=== PATIENT | female | born 1995 | race Caucasian/White ===

== ENCOUNTER 2021-01-08 19:08 | Emergency (ER) | payer BC, SELFPAY ==
[2021-01-08 19:09] VITALS: BP 127/111; PULSE 130; RESP 22; TEMP 36.2; O2SAT 100
--- NOTE | 2021-01-08 19:21 | PC.NURSE ---
Dr. Petty gave patient soda.
--- NOTE | 2021-01-08 19:31 | ED.GENADULT ---
HPI - General Adult General Chief complaint: Unspecified Stated complaint: feels like something stuck in throat Time Seen by Provider: 01/08/21 19:15 Source: RN notes reviewed History of Present Illness HPI narrative: Patient presents emergency department from home for esophageal foreign body patient states she was eating steak approximately 4:30 PM she had a piece of steak stuck. She states that this is happened proximally 10 other times states she is been unable to tolerate any liquids including her own secretions she denies any fevers or chills chest pain shortness of breath or any other symptoms Related Data Allergies Allergy/AdvReac Type Severity Reaction Status Date / Time No Known Allergies Allergy Unknown Verified 01/08/21 19:12 Review of Systems Review of Systems: Narrative: Gen.: Denies fevers or chills ENT: Denies congestion Respiratory: Denies shortness of breath or cough CV: Denies chest pain or palpitations GI: See HPI denies chance of Musculoskeletal: Denies back pain or muscle pain Neuro: Denies numbness, tingling, weakness or focal weakness Skin: Denies rash Except as documented, all other systems reviewed and negative [facility] Past Medical History Medical History (Updated 01/08/21 @ 19:49 by Adams Petty DO) Patient denies significant medical history Social History Social History (Updated 01/08/21 @ 19:32 by Adams Petty DO) Smoking status: Never smoker Exam Narrative: Exam Narrative: APPEARANCE: No acute distress, nontoxic, resting in bed EYES: EOMI HEENT: Normocephalic, atraumatic, OMM airway patent, unable to tolerate own secretions RESPIRATORY: No respiratory distress Clear to auscultation bilaterally with no rhonchi wheezing or rales. CARDIOVASCULAR: Regular rate and rhythm without murmurs rubs or gallops. ABDOMINAL: Soft, nontender, nondistended, no rebound or guarding MUSCULOSKELETAl: Moves all extremities. NEURO: Awake and alert. Following commands, speech normal, no focal deficits SKIN:: Warm, dry. No rashes lesions or abrasions PSYCHIATRIC: Normal affect/mood, Course Course Emergency Course: Patient given strain asked to jump up and down with passage of foreign body now able to drink and tolerating own secretions Discussed with patient results of workup and diagnosis. Discussed need for follow-up with primary care, proper use of medication, and reasons to return to the emergency department. Patient understands and agrees to current treatment plan Vital Signs Vital signs: Vital Signs Temperature 97.2 F L 01/08/21 19:09 Pulse Rate 130 H 01/08/21 19:09 Respiratory Rate 22 H 01/08/21 19:09 Blood Pressure 127/111 H 01/08/21 19:09 Pulse Oximetry 100 01/08/21 19:09 Temperature 97.2 F L 01/08/21 19:09 Pulse Rate 130 H 01/08/21 19:09 Respiratory Rate 22 H 01/08/21 19:09 Blood Pressure 127/111 H 01/08/21 19:09 Pulse Oximetry 100 01/08/21 19:09 Medical Decision Making Vital Signs Vital Signs: Vital Signs Temperature 97.2 F L 01/08/21 19:09 Pulse Rate 130 H 01/08/21 19:09 Respiratory Rate 22 H 01/08/21 19:09 Blood Pressure 127/111 H 01/08/21 19:09 Pulse Oximetry 100 01/08/21 19:09 Temperature 97.2 F L 01/08/21 19:09 Pulse Rate 130 H 01/08/21 19:09 Respiratory Rate 22 H 01/08/21 19:09 Blood Pressure 127/111 H 01/08/21 19:09 Pulse Oximetry 100 01/08/21 19:09 Discharge Plan Discharge Clinical Impression: Esophageal foreign body Patient Disposition: Home, Self-Care Condition: Stable Instructions: Antibiotic Form, Esophageal Foreign Body (ED) Additional Instructions: Return for any inability to swallow or any other symptoms of concern Prescriptions: New pantoprazole [Protonix] 40 mg tablet,delayed release (DR/EC) 40 mg PO HS Qty: 14 RF: 0 Follow-up/Referrals: PHYSICIAN NOT ON STAFF,NONSTAFF [Primary Care Provider] - Jarad Baig MD [Physician] - (Follow-up
--- NOTE | 2021-01-08 19:42 | PC.NURSE ---
Patient states that the food in her throat is gone, and she feels much better after 's intervention. ERP notified of patient's results.
== END 2021-01-08 20:22 | disposition home or self-care (01) ==
LOC: ANHED 20:16
PROVIDERS: Emergency Provider Emergency Medicine; PCP Internal Medicine
DX: T18.128A Food in esophagus causing other injury, initial encounter (principal)
CPT/HCPCS: 99283

== ENCOUNTER → 2021-03-19 01:42 | Outpatient (CLI) | payer BC, SELFPAY ==
[2021-03-20 14:53] LABS: SARS-CoV-2 RNA PCR Negative
== END ==
PROVIDERS: PCP Internal Medicine; Visit Provider Internal Medicine Gastroenterology
DX: Z01.812 Encounter for preprocedural laboratory examination (principal); Z20.822 Contact with and (suspected) exposure to COVID-19
CPT/HCPCS: C9803; U0003; U0005

== ENCOUNTER → 2022-03-13 09:16 | Outpatient (CLI) | payer BC, SELFPAY ==
--- NOTE | ~2022-03-13 | US_ITS ---
EXAMINATION: US transvaginal DATE: 03/13/2022 09:36 INDICATION: Assess IUD position TECHNIQUE: Multiple endovaginal sonographic images of the pelvis were obtained. COMPARISON: 04/01/2019 FINDINGS: The uterus measures 7.9 x 3.0 x 5.0 cm. The IUD is in expected position. The endometrial co mplex measures 3 mm. The right ovary measures 4.1 x 2.6 x 3.2 cm. The left ovary measures 3.4 x 2.6 x 2.7 cm. There is normal vascular flow in the ovaries. There is no free fluid in the pelvis. IMPRESSION: 1. IUD in expected position. Reviewed, dictated and finalized at location A.
== END ==
PROVIDERS: PCP Family Medicine; Visit Provider Nurse Practitioner
DX: T83.32XA Displacement of intrauterine contraceptive device, initial encounter (principal)
CPT/HCPCS: 76830

== ENCOUNTER 2022-07-13 17:24 | Emergency (ER) | payer BC, SELFPAY ==
[2022-07-13 17:30] VITALS: BP 125/70; PULSE 84; RESP 18; TEMP 36.9; O2SAT 100
--- NOTE | 2022-07-13 17:37 | ED.WOUNDLAC ---
HPI - Wound/Laceration General Chief Complaint: Wound/Laceration Stated Complaint: Cut Index Finger Rt Hand Time Seen by Provider: 07/13/22 17:30 Source: patient, family, RN notes reviewed and old records reviewed Mode of arrival: ambulatory Limitations: no limitations History of Present Illness HPI narrative: 27-year-old female presents to the [facility] with a laceration to the radial aspect of the right index finger. Bleeding is controlled. States she cut it on a knife while washing dishes. Has full range of motion. Last Tdap yesterday. Patient tetanus UTD: Yes (July 11, 2022) Related Data Home Medications Medication Instructions Recorded Confirmed levonorgestrel 20 mcg/24 hours (7 See Rx Instructions .Route .COMPLEX 07/13/22 07/13/22 yrs) 52 mg intrauterine device (Mirena) Allergies Allergy/AdvReac Type Severity Reaction Status Date / Time No Known Allergies Allergy Unknown Verified 07/13/22 17:28 Review of Systems Review of Systems: All systems reviewed & are unremarkable except as noted in HPI and below Constitutional: Constitutional: Reports no additional constitutional complaints, Denies chills and Denies fever(s) Eyes: Eyes: Reports no additional eye complaints ENT: Reports system reviewed and no additional complaints, except as documented Cardiovascular: Cardiovascular: Reports no additional cardiovascular complaints, Denies chest pain and Denies dyspnea Respiratory: Respiratory: Reports no additional respiratory complaints, Denies cough and Denies dyspnea Gastrointestinal: Gastrointestinal: Reports no additional gastrointestinal complaints, Denies abdominal pain, Denies nausea and Denies vomiting Musculoskeletal: Musculoskeletal: Reports no additional musculoskeletal complaints Integumentary/Breasts: Skin/Breast: Reports as per HPI Comments: 2 cm laceration right index finger Neurologic: Reports system reviewed and no additional complaints, except as documented Psychiatric: Psychiatric: Reports no additional psychiatric complaints Allergic/Immunologic: Allergic/Immunologic: Reports no additional allergic/immunologic complaints [facility] Past Medical History Medical History (Updated 07/13/22 @ 17:55 by Hannah Sterling APRN) Dysphagia Food impaction of esophagus GERD (gastroesophageal reflux disease) Patient denies significant medical history Surgical History Surgical History History of tonsillectomy Family History Family History Other Hypertension Social History Social History Smoking status: Never smoker Alcohol intake: current Drinks per week: 4 Substance use type: does not use, former substance user, marijuana, crack/cocaine, heroin, amphetamines, hallucinogens, tranquilizers, sedatives, opiates, painkillers, club/senior interior designer drugs, inhalants, IV drugs, methamphetamine, prescription drug, unknown and other Spiritual care concerns: No Comments At the time of my signature, I reviewed and agree with the nursing past medical, surgical, social, and family history. There is no relevant family history pertinent to the patient complaint. Exam Const: General: cooperative, healthy appearing, no acute distress, well developed, alert and awake Nutritional Appearance: well nourished Orientation/consciousness: patient oriented x3 Limitations: no limitations HENMT: Head: normal to inspection and No palpable skull fracture present Ears: hearing grossly normal bilaterally, external ears normal, TM's normal bilaterally and EAC's normal Eyes: Pupils: Equal, round and reactive pupils present Neck: Neck: normal visual inspection, no lymphadenopathy and no meningeal signs Chest: Chest palpation & inspection: normal inspection of the chest Resp: Effort & Inspection: normal respiratory effort and no use of accessor
== END 2022-07-13 18:00 | disposition home or self-care (01) ==
PROVIDERS: Emergency Provider Nurse Practitioner; PCP Family Medicine
DX: S61.210A Laceration without foreign body of right index finger without damage to nail, initial encounter (principal); W26.0XXA Contact with knife, initial encounter; Y93.G1 Activity, food preparation and clean up; K21.9 Gastro-esophageal reflux disease without esophagitis
CPT/HCPCS: 12001; 99212; G0463

== ENCOUNTER 2024-08-22 14:41 | Outpatient (CLI) | payer BC, SELFPAY ==
--- NOTE | ~2024-08-22 | US_ITS ---
EXAMINATION: US OB transvaginal DATE: 08/22/2024 14:59 INDICATION: Early . TECHNIQUE: Real-time transvaginal pelvic ultrasound was performed. COMPARISON: None. FINDINGS: The uterus measures 10.9 x 5.8 x 6.8 cm. There is an intrauterine gestational sac. A yolk sac is iden tified. The crown rump length measures 1.6 cm, which correlates with an estimated gestational age of 8 weeks and 0 day(s) (+/-) 5 day(s). heart motion is identified measuring 176 beats per minute (bpm) by M-mode Doppler. The ovaries are not visualized. There is no free fluid in the pelvis. IMPRESSION: 1. Single living intrauterine gestation with estimated date of delivery of 04/03/2025. Reviewed, dictated and finalized at location A. IMPRESSION: 1. Single living intrauterine gestation with estimated date of delivery of 03/13.
== END 2024-08-22 14:42 | disposition home or self-care (01) ==
LOC: MICIMG 14:41
PROVIDERS: PCP Family Medicine; Visit Provider Advanced Practice Midwife
DX: N92.6 Irregular menstruation, unspecified (principal)
CPT/HCPCS: 76817

== ENCOUNTER 2025-01-08 08:28 | Outpatient (CLI) | payer BC, SELFPAY ==
[2025-01-08] VITALS (7 sets, daily range): BP systolic 117–148; BP diastolic 66–97; PULSE 85–108; BMI 29.2
[2025-01-08 09:15] LABS: Add Urine Microscopic? YES; Appearance Urine Clear (Clear); Bacteria Urine 2+ /hpf; Bilirubin Urine Negative (Negative); Blood Urine Negative (Negative); Color Urine Yellow (Yellow); Glucose Urine UA Negative (Negative); Ketones Urine Negative (Negative); Leukocyte Esterase Ur Trace LEU/UL (Negative); Need Manual Microscopic Reviewed; Nitrate Urine Negative (Negative); Non Pathogenic Casts 0-2; Protein Urine Trace mg/dL (Negative); RBC Urine 0-2 /hpf (0-2); Specific Grav Ur 1.012 (1.001-1.035); Squamous Epithelial Cell Urine Occasional /hpf (Few); Urobilinogen Urine 0.2 mg/dL (<2.0)
[2025-01-08 09:19] LABS: Alanine Aminotransferase 29 U/L (6-35); Albumin Level 3.4 g/dL (3.5-5.1); Alkaline Phosphatase 115 U/L (38-126); Anion Gap 11 mmol/L (4-12); Aspartate Amino Transferase 30 U/L (14-36); Bilirubin,Total 0.8 mg/dL (0.2-1.3); Blood Urea Nitrogen 11 mg/dL (7-17); Calcium 9.6 mg/dL (8.4-10.2); Carbon Dioxide 21 mmol/L (22-30); Chloride 104 mmol/L (98-107); Estimated CRCL calculation 98 ml/min; Estimated Glomerular Filt Rate > 60; Glucose 124 mg/dL (65-110); Potassium 3.7 mmol/L (3.4-5.0); Sodium 136 mmol/L (137-145); Uric Acid 5.4 mg/dL (2.5-7.5)
[2025-01-08 09:28] LABS: Total Protein Urine Random 18 mg/dL
[2025-01-08 09:43] LABS: Basophils Percent Auto 0.4 % (0.2-1.2); Eosinophils Absolute Auto 0.3 K/mm3 (0-0.3); Eosinophils Percent Auto 4.2 % (0-4.4); Hematocrit 39.3 % (37.0-47.0); Hemoglobin 13.3 g/dL (12.0-15.0); Immature Granulocyte Absolute 0.03 K/mm3 (0.00-0.031); Immature Granulocyte Percent A 0.4 % (0-0.5); Lymphocytes Absolute Auto 2.83 K/mm3 (0.9-3.2); Lymphocytes Percent Auto 36.3 % (18.3-44.2); Mean Corpuscular HGB Conc 33.8 g/dl (32-36); Mean Corpuscular Hemoglobin 30.5 pg (26-34); Mean Corpuscular Volume 90.1 fl (80-100); Mean Platelet Volume 11.2 fl (7.4-10.4); Monocytes Absolute Auto 0.5 K/mm3 (0.1-0.6); Monocytes Percent Auto 6.4 % (2.6-8.5); Neutrophils Absolute Auto 4.1 K/mm3 (1.3-6.7); Neutrophils Percent Auto 52.3 % (45.5-73.1); Platelet Count Result 216 k/mm3 (150-375); Red Blood Count 4.36 M/mm3 (4.2-5.4); Red Cell Distribution Width 12.7 % (11.5-14.5); White Blood Count 7.8 K/mm3 (4.5-10.0)
--- NOTE | 2025-01-09 17:19 | PC.NURSE ---
1711--Reported BP's and tracing to Dr. Gomez.DC orders given. Pre-E precautions given to patient.
[2025-01-09 17:22] VITALS: BP 122/84; PULSE 89
== END 2025-01-09 17:25 | disposition home or self-care (01) ==
LOC: ANHOBOP 08:32 → ANHOBPP 08:33
PROVIDERS: PCP Family Medicine; Visit Provider Obstetrics & Gynecology Gynecology
DX: O13.9 Gestational [pregnancy-induced] hypertension without significant proteinuria, unspecified trimester (principal); Z3A.00 Weeks of gestation of pregnancy not specified
CPT/HCPCS: 36415; 59025; 80053; 81001; 82570; 84156; 84550; 85025; 87086; 99199

== ENCOUNTER 2025-01-09 08:28 | Outpatient (NON) | payer BC, SELFPAY ==
[2025-01-09 09:34] VITALS: BMI 29.1
[2025-01-09 14:16] LABS: Total Volume 24 Hour Urine 2050 ml
[2025-01-09 14:16] LABS: Collection Time Urine 24 HOURS; Patient Weight 149 Lbs
[2025-01-09 14:26] LABS: Total Protein Urine 24 Hr 389 mg/24hr (28-141); Total Protein Urine Random 19 mg/dL
[2025-01-09 14:29] LABS: Creatinine Urine 57.5 mg/dL; Serum Creat 0.62
[2025-01-09 14:31] LABS: Creatinine Clearance Urine 139.1 ml/min (75-125); Total Volume 24 Hour Urine 2050 ml
[2025-01-09 14:31] LABS: Specific Gravity Ur 1.015
== END 2025-01-09 08:29 | disposition home or self-care (01) ==
LOC: ANHOBOP 09:28
PROVIDERS: PCP Family Medicine; Visit Provider Obstetrics & Gynecology Gynecology
DX: O13.9 Gestational [pregnancy-induced] hypertension without significant proteinuria, unspecified trimester (principal); Z3A.00 Weeks of gestation of pregnancy not specified
CPT/HCPCS: 81050; 82575; 84156

== ENCOUNTER 2025-01-09 16:11 | Outpatient (CLI) | payer BC, SELFPAY ==
[2025-01-09 16:31] VITALS: BP 138/93; PULSE 94
[2025-01-09 16:46] VITALS: BP 128/86; PULSE 84
[2025-01-09 17:01] VITALS: BP 122/84; PULSE 89
== END 2025-01-09 18:03 | disposition home or self-care (01) ==
LOC: ANHOBOP 16:19 → ANHOBPP 16:20
PROVIDERS: PCP Family Medicine; Visit Provider Obstetrics & Gynecology Gynecology
DX: O13.9 Gestational [pregnancy-induced] hypertension without significant proteinuria, unspecified trimester (principal)
CPT/HCPCS: 99199

== ENCOUNTER 2025-01-26 08:53 | Outpatient (CLI) | payer BC, SELFPAY ==
[2025-01-26] VITALS (19 sets, daily range): BP systolic 118–159; BP diastolic 78–105; PULSE 74–95
[2025-01-26 09:24] LABS: Basophils Percent Auto 0.4 % (0.2-1.2); Eosinophils Absolute Auto 0.4 K/mm3 (0-0.3); Eosinophils Percent Auto 4.8 % (0-4.4); Hematocrit 39.1 % (37.0-47.0); Hemoglobin 13.4 g/dL (12.0-15.0); Immature Granulocyte Absolute 0.05 K/mm3 (0.00-0.031); Immature Granulocyte Percent A 0.6 % (0-0.5); Lymphocytes Percent Auto 37.1 % (18.3-44.2); Mean Corpuscular HGB Conc 34.3 g/dl (32-36); Mean Corpuscular Hemoglobin 30.6 pg (26-34); Mean Corpuscular Volume 89.3 fl (80-100); Mean Platelet Volume 10.5 fl (7.4-10.4); Monocytes Absolute Auto 0.7 K/mm3 (0.1-0.6); Monocytes Percent Auto 8.2 % (2.6-8.5); Neutrophils Absolute Auto 4.4 K/mm3 (1.3-6.7); Neutrophils Percent Auto 48.9 % (45.5-73.1); Platelet Count Result 201 k/mm3 (150-375); Red Blood Count 4.38 M/mm3 (4.2-5.4); Red Cell Distribution Width 12.9 % (11.5-14.5); White Blood Count 8.9 K/mm3 (4.5-10.0)
--- OUTSIDE RECORDS SUMMARY | 2025-01-26 09:34 | XMS_ITS | Clinical Summary ---
Author Organization [facility] Address [address] [place] [phone] Phone Care Team Providers Care Dyer Assistant Name Role Phone Unavailable Primary Care Provider Unavailabl e Active Problems Problem Noted Date Diagnosed Date growth restriction antepartum 12/18/2024 Encounters Date Type Department Care Team Description 01/26/2025 8:00 AM CDT Hospital Encounter [facility] Lora Falk [address] [place] [phone] Sarita Tapia MD Arrived 01/26/2025 7:30 AM CDT Hospital Encounter [facility] Lora Falk [address] [place] [phone] Sarita Tapia MD Arrived 01/19/2025 8:00 AM CDT - 01/19/2025 11:59 PM CDT Hospital Encounter [facility] Lora Falk [address] [place] [phone] Sarita Tapia MD Discharge Disposition: Home or Self Care 01/19/2025 7:15 AM CDT - 01/19/2025 11:59 PM CDT Hospital Encounter [facility] Lora Falk [address] [place] [phone] Sarita Tapia MD Discharge Disposition: Home or Self Care 01/17/2025 External Device Data STL ABSTRACTION Provider, Abstract 01/16/2025 External Device Data STL ABSTRACTION Provider, Abstract 01/13/2025 External Device Data STL ABSTRACTION Provider, Abstract 01/12/2025 8:00 AM NON FERROUS MATERIAL HANDLER - 01/12/2025 11:59 PM NON FERROUS MATERIAL HANDLER Hospital Encounter [facility] Lora Falk [address] [place] [phone] Sarita Tapia MD Discharge Disposition: Home or Self Care 01/12/2025 7:15 AM NON FERROUS MATERIAL HANDLER - 01/12/2025 11:59 PM NON FERROUS MATERIAL HANDLER Hospital Encounter [facility] Lora Falk [address] [place] [phone] Sarita Tapia MD Discharge Disposition: Home or Self Care 01/05/2025 7:53 AM NON FERROUS MATERIAL HANDLER - 01/05/2025 11:59 PM NON FERROUS MATERIAL HANDLER Hospital Encounter [facility] Lora Falk [address] [place] [phone] Juani Acosta MD Discharge Disposition: Home or Self Care 12/30/2024 External Device Data STL ABSTRACTION Provider, Abstract 12/18/2024 10:00 AM NON FERROUS MATERIAL HANDLER Video Visit [facility] Maternal and [facility] [address] [facility] [address] [place] [phone] Juani Acosta MD 24 weeks gestation of (Primary Dx); growth restriction antepartum 12/18/2024 8:17 AM NON FERROUS MATERIAL HANDLER - 12/18/2024 11:59 PM NON FERROUS MATERIAL HANDLER Hospital Encounter [facility] Lora Falk [address] [place] [phone] Irwin Fontaine MD Discharge Disposition: Home or Self Care 12/18/2024 8:09 AM NON FERROUS MATERIAL HANDLER - 12/18/2024 11:59 PM NON FERROUS MATERIAL HANDLER Hospital Encounter [facility] Lora Falk [address] [place] [phone] Irwin Fontaine MD Discharge Disposition: Home or Self Care 12/18/2024 Orders Only [facility] Maternal and [facility] Floor [address] [facility] [address] [place] [address] Tamera Good MD Poor growth affecting management of mother in second trimester, single or unspecified fetus (Primary Dx) 12/09/2024 External Device Data STL ABSTRACTION Provider, Abstract 12/03/2024 External Device Data STL ABSTRACTION Provider, Abstract 12/03/2024 External Device Data STL ABSTRACTION Provider, Abstract 11/26/2024 External Device Data STL ABSTRACTION Provider, Abstract 11/25/2024 External Device Data STL ABSTRACTION Provider, Abstract 11/20/2024 1:48 PM NON FERROUS MATERIAL HANDLER - 11/20/2024 11:59 PM NON FERROUS MATERIAL HANDLER Hospital Encounter [facility] Lora Falk [address] [place] [phone] Tamera Good MD Discharge Disposition: Home or Self Care from Last 3 Months Social History Tobacco Use Types Packs/Day Years Used Date Smoking Tobacco: Never Assessed Comments Unknown Sex and Gender Information Value Date Recorded Sex Assigned at Not on file Legal Sex Female 7:14 AM NON FERROUS MATERIAL HANDLER Gender Identity Not on file Sexual Orientation Not on file Plan of Treatment Upcoming Encounters Date Type Department Care Team (Late st Contact Info) Description 02/02/2025 7:15 AM CDT Appointment [facility] Lora Falk [address] [place] [phone] Sarita Tapia MD [address] [place] [phone] 02/02/2025 8:00 AM CDT Appointment [facility] Lora Falk [address] [place] [phone] Sarita Tapia MD [address] [place] [phone] Health Maintenance Due Date Last Done Comments DTAP/TDAP/TD VACCINES (1 - Tdap) 2014 HEPATITIS B VACCINES (1 of 3 - 19+ 3-dose series) 2014 CERVICAL CANCER SCREENING 02/27/2016 INFLUENZA VACCINE (#1) 2024 COVID-19 Vaccine (3 2023-2 5 season) 2024 08/30/2021, 08/08/2021 Preventative Visit- Commercial 11/12/2024 HPV VACCINES Aged Out No longer vic naye based on patient's age to complete this topic Procedures Procedure Name Priority Date/Time Associated Diagnosis Comments US BIOPHYSICAL PROF W NST Routine 01/26/2025 8:46 AM CDT IUGR (intrauterine growth restriction) affecting care of mother, unspecified trimester, other fetus Procedure Note - Sarita Tapia MD - 01/26/2025 8:46 AM CDTThis note is in progress. BPP WITH DIANA STUDY Pat. Name:Vidal NANCE Date:01/26/2025 8:46am Pat. NO: [id number] MD:TAMERA GOOD [facility]1995Age:29 INDICATION Family History of Congenital Heart Defect, Suspected in Fetus Marginal Cord Insertion Intrauterine Growth Restriction (IUGR) Preeclampsia, Mild CODING Diagnoses O35.2XX0: Maternal care for (suspected) hereditarydisease in fetus Z3A.30: Weeks of gestation Z36.2: Encounter for other screeningfollow-up O69.89X0: Labor and delivery complicated by othercord complications Z3A.30: Weeks of gestation O14.03: Mild to moderate pre-eclampsia O36.5930: Maternal care for other known orsuspected poor growth O69.89X0: Labor and delivery complicated by othercord complications O35.2XX0: Maternal care for (suspected) hereditarydisease in fetus Procedures 94720: Limited 1 or more - MARILU, R, position 76367: biophysical profile; with non-stresstesting HISTORY OB History 2. Para 1 MATERNAL ASSESSMENT Physical Exam Weight 67 kg. BMI 28.90 kg/m . Blood qxqaeddq215/103 mmHg. Heart rate 88 bpm Blood Pressure Profile: Right arm: # 1 149/100 mmHg, MAP 116.3 mmHg Repeat METHOD EFM. Transabdominal ultrasound examination. View: Good view [place] . Number of fetuses: 1 DATING GA by prior [id number] w + 3 d CORNELL by prior assessment:04/03/2025 Method of dating:Restore dating from previous exam Assigned:based on stated CORNELL, selected on 11/20/2024 Assigned GA30 w + 3 d Assigned CORNELL:04/03/2025 GENERAL EVALUATION Cardiac activity present. Presentation: cephalic NON STRESS TEST NST interpretation: non-reactive. Test duration 40 min. Baseline FHR 135bpm. Accelerations: Not Present. Decelerations: Not present. Uterine activity: absent AMNIOTIC FLUID ASSESSMENT Amount of AF: normal amount MVP 3.9 cm. MARILU 10.7 cm. Q1 3.9 cm, Q2 2.1 cm, Q3 2.5 cm, Q4 2.2 cm BIOPHYSICAL PROFILE 2: breathing movements 2: Gross body movements 2: tone 2: Amniotic fluid volume NST: non-reactive 06/21 Biophysical profile score COMMENT Nursing notes: Patient reports positive movement and no bleeding,leaking or paramjit. M specialist, Dr. Tapia reviewed findings. BPP ordered. BPP 06/21. Patient is headed to [facility] for prolonged monitoring and blood work for elevated pressures. Patient verbalized understanding and all questionswere answered. Patient scheduled once weekly. IMPRESSION testing @ 30w 3d for preeclampsia without severe features andFGR. -The NST is non-reactive but with one variable noted. -Amniotic fluid indices are within normal limits. - The BPP is 810 The patient had elevated BP during the testing. She was sent to triage forpreeclampsia evaluation and prolonged monitoring for 1 hour. Thank you for allowing us to participate in the care of your patient. US OB LTD+UMB ART DOPPLER Routine 01/26/2025 8:42 AM CDT IUGR (intrauterine growth restriction) affecting care of mother, unspecified trimester, other fetus US MONITORING NST Routine 01/19/2025 10:11 AM CDT IUGR (intrauterine growth restriction) affecting care of mother, unspecified trimester, other fetus US OB FOLLOW UP + UMB ART Routine 01/19/2025 7:39 AM CDT IUGR (intrauterine growth restriction) affecting care of mother, unspecified trimester, other fetus US MONITORING NST Routine 01/12/2025 9:25 AM NON FERROUS MATERIAL HANDLER IUGR (intrauterine growth restriction) affecting care of mother, unspecified trimester, other fetus US OB LTD+UMB ART DOPPLER Routine 01/12/2025 8:47 AM NON FERROUS MATERIAL HANDLER IUGR (intrauterine growth restriction) affecting care of mother, unspecified trimester, other fetus US OB FOLLOW UP + UMB ART Routine 01/05/2025 8:37 AM NON FERROUS MATERIAL HANDLER IUGR (intrauterine growth restriction) affecting care of mother, third trimester, fetus 1 ECHO 2D + COLOR FLOW VELOCITY Routine 12/18/2024 9:49 AM NON FERROUS MATERIAL HANDLER Family history of congenital heart defect screening for malformation using ultrasonics US OB FOLLOW UP PER FETUS Routine 12/18/2024 9:49 AM NON FERROUS MATERIAL HANDLER Family history of congenital heart defect screening for malformation using ultrasonics US OB DETAIL SINGLE GEST Routine 11/20/2024 5:00 PM NON FERROUS MATERIAL HANDLER Family history of congenital heart defect screening for malformation using ultrasonics from Last 3 Months Results * US OB LTD+UMB ART DOPPLER (01/26/2025 8:42 AM CDT) Only the most recent of2 resultswithin the time period is included. Anatomical Region Laterality Modality Pelvis Ultrasound 01/26/2025 8:11 AM CDT Narrative 01/26/2025 9:22 AM CDT STL LIMITED ----- Pat. Name: ROXANA NANCE Study Date: 01/26/2025 8:11am Pat. NO: [id number] Referring MD: TAMERA GOOD MD Site: [facility] Risk Manager: Misti Steele RDMS : 1995 Age: 29 ----- INDICATION ----- Family History of Congenital Heart Defect, Suspected in Fetus Marginal Cord Insertion Intrauterine Growth Restriction (IUGR) Preeclampsia, Mild CODING ----- Diagnoses O35.2XX0: Maternal care for (suspected) hereditary disease in fetus Z3A.30: Weeks of gestation Z36.2: Encounter for other screening follow-up O69.89X0: Labor and delivery complicated by other cord complications Z3A.30: Weeks of gestation O14.03: Mild to moderate pre-eclampsia O36.5930: Maternal care for other known or suspected poor growth O69.89X0: Labor and delivery complicated by other cord complications O35.2XX0: Maternal care for (suspected) hereditary disease in fetus Procedures 04275: Ultrasound, uterus, real time with image documentation, limited one or more fetuses 22008: Doppler velocimetry, ; umbilical artery 01974: Doppler velocimetry, ; middle cerebral artery 67545: Doppler echocardiography, , pulsed wave and/or continuous wave with spectral display; follow-up or repeat study HISTORY ----- OB History 2. Para 1 METHOD ----- Transabdominal ultrasound examination ----- [facility] . Number of fetuses: 1 DATING ----- GA by prior assessment 30 w + 3 d CORNELL by prior assessment: 04/03/2025 Method of dating: Restore dating from previous exam Assigned: based on stated CORNELL, selected on 11/20/2024 Assigned GA 30 w + 3 d Assigned CORNELL: 04/03/2025 GENERAL EVALUATION ----- Cardiac activity present. FHR 135 bpm. movements: present. Presentation: cephalic Placenta: Placental site: left lateral with anterior accessory lobe Umbilical cord: Cord vessels: 3 vessel cord. Amniotic fluid: Amount of AF: normal amount. MVP 3.9 cm. MARILU 10.7 cm. Q1 3.9 cm, Q2 2.1 cm, Q3 2.5 cm, Q4 2.2 cm ANATOMY ----- The following structures appear normal: Heart / Thorax Cardiac rhythm. Abdomen Stomach. Bladder. DOPPLER ----- Umbilical Artery: PI 1.43 >99% Betsy RI 0.76 95% Betsy PS 35.45 cm/s 5% Ebbing ED 8.91 cm/s TAmax 19.76 cm/s 1% Ebbing MD 8.74 cm/s S / D 4.29 98% Betsy Mid Cerebral Artery: PI 1.44 6% Bahlmann RI 0.74 25% Bahlmann PS 37.89 cm/s PS 0.92 MoM ED 9.77 cm/s TAmax 19.48 cm/s MD 9.27 cm/s S / D 3.88 CPR PI 1.01 <1% Ebbing GROWTH OVERVIEW ----- Exam date GA BPD (mm) HC (mm) AC (mm) FL (mm) HL (mm) EFW (g) 11/20/2024 20w 6d 48.5 41% 178.5 19% 155.5 39% 31.4 10% 29.6 11% 344 19% 12/18/2024 24w 6d 55.2 1% 211.2 1% 185.1 6% 39.5 1% 558 2% 01/05/2025 27w 3d 64.8 8% 247.3 9% 208.6 3% 40.8 <1% 735 <1% 01/19/2025 29w 3d 68.8 3% 254.8 <1% 214.9 <1% 45.0 <1% 859 <1% COMMENT ----- Patient's name and date of were verified by the concrete plant laborer prior to the exam. IMPRESSION ----- Hill @ 30w 3d referred for ultrasound for growth restriction. - The fetus is in cephalic lie. - Amniotic fluid indices are within normal limits. - Umbilical artery Doppler velocimetry is elevated today but without evidence of AEDF/REDF. The patient had an NST following the ultrasound; please see separate report for details. Continue weekly umbilical artery Doppler velocimetry. Continue growth every 2 weeks. Thank you for allowing us to participate in the care of this patient. Procedure Note Sarita Tapia MD - 01/26/2025 STL LIMITED ----- Pat. Name:Vidal NANCE Date:01/26/2025 8:11am Pat. NO: [id number] :TAMERA GOOD MD [facility]Misti Steele RDMS :1995Age:29 ----- INDICATION ----- Family History of Congenital Heart Defect, Suspected in Fetus Marginal Cord Insertion Intrauterine Growth Restriction (IUGR) Preeclampsia, Mild CODING ----- Diagnoses O35.2XX0: Maternal care for (suspected) hereditarydisease in fetus Z3A.30: Weeks of gestation Z36.2: Encounter for other screeningfollow-up O69.89X0: Labor and delivery complicated by othercord complications Z3A.30: Weeks of gestation O14.03: Mild to moderate pre-eclampsia O36.5930: Maternal care for other known orsuspected poor growth O69.89X0: Labor and delivery complicated by othercord complications O35.2XX0: Maternal care for (suspected) hereditarydisease in fetus Procedures 80591: Ultrasound, uterus, real time withimage documentation, limited one or more fetuses 24806: Doppler velocimetry, ; umbilicalartery 08602: Doppler velocimetry, ; middle cerebralartery 51065: Doppler echocardiography, , pulsedwave and/or continuous wave with spectral display; follow-up or repeat study HISTORY ----- OB History 2. Para 1 METHOD ----- Transabdominal ultrasound examination ----- [facility] . Number of fetuses: 1 DATING ----- GA by prior [id number] w + 3 d CORNELL by prior assessment:04/03/2025 Method of dating:Restore dating from previous exam Assigned:based on stated CORNELL, selected on 11/20/2024 Assigned GA30 w + 3 d Assigned CORNELL:04/03/2025 GENERAL EVALUATION ----- Cardiac activity present. FHR 135 bpm. movements: present.Presentation: cephalic Placenta: Placental site: left lateral with anterior accessory lobe Umbilical cord: Cord vessels: 3 vessel cord. Amniotic fluid: Amount of AF: normal amount. MVP 3.9 cm. MARILU 10.7 cm. Q13.9 cm, Q2 2.1 cm, Q3 2.5 cm, Q4 2.2 cm ANATOMY ----- The following structures appear normal: Heart / Thorax Cardiac rhythm. Abdomen Stomach. Bladder. DOPPLER ----- Umbilical Artery: PI 1.43 >99%Betsy RI 0.76 95%Betsy PS 35.45 cm/s 5%Ebbing ED 8.91 cm/s TAmax 19.76 cm/s 1%Ebbing MD 8.74 cm/s S / D 4.29 98%Betsy Mid Cerebral Artery: PI 1.44 6%Bahlmann RI 0.74 25%Bahlmann PS 37.89 cm/s PS 0.92 MoM ED 9.77 cm/s TAmax 19.48 cm/s MD 9.27 cm/s S / D 3.88 CPR PI 1.01 <1%Ebbing GROWTH OVERVIEW ----- Exam date GA BPD (mm) HC (mm) AC (mm) FL(mm) HL (mm) EFW (g) 11/20/2024 20w 6d 48.5 41% 178.5 19% 155.5 39%31.4 10% 29.6 11% 344 19% 12/18/2024 24w 6d 55.2 1% 211.2 1% 185.1 6%39.5 1% 558 2% 01/05/2025 27w 3d 64.8 8% 247.3 9% 208.6 3%40.8 <1% 735 <1% 01/19/2025 29w 3d 68.8 3% 254.8 <1% 214.9 <1%45.0 <1% 859 <1% COMMENT ----- Patient's name and date of were verified by the concrete plant laborer prior tothe exam. IMPRESSION ----- Hill @ 30w 3d referred for ultrasound for growthrestriction. - The fetus is in cephalic lie. - Amniotic fluid indices are within normal limits. - Umbilical artery Doppler velocimetry is elevated today but withoutevidence of AEDF/REDF. The patient had an NST following the ultrasound; please see separatereport for details. Continue weekly umbilical artery Doppler velocimetry. Continue growth every 2 weeks. Thank you for allowing us to participate in the care of this patient. us Sarita Tapia MD US ORDERABLES Final Result * US MONITORING NST (01/19/2025 10:11 AM CDT) Only the most recent of2 resultswithin the time period is included. Anatomical Region Laterality Modality Ultrasound 01/19/2025 8:43 AM CDT Narrative 01/19/2025 10:[address] RUDD NST ----- Pat. Name: ROXANA NANCE Study Date: 01/19/2025 8:43am Pat. NO: [id number] Referring MD: TAMERA GOOD MD Site: [facility] Risk Manager: : 1995 Age: 29 ----- INDICATION ----- Family History of Congenital Heart Defect, Suspected in Fetus Marginal Cord Insertion Intrauterine Growth Restriction (IUGR) Preeclampsia, Mild CODING ----- Diagnoses O35.2XX0: Maternal care for (suspected) hereditary disease in fetus Z3A.29: Weeks of gestation Z36.2: Encounter for other screening follow-up O69.89X0: Labor and delivery complicated by other cord complications Z3A.29: Weeks of gestation O14.03: Mild to moderate pre-eclampsia O36.5930: Maternal care for other known or suspected poor growth O69.89X0: Labor and delivery complicated by other cord complications O35.2XX0: Maternal care for (suspected) hereditary disease in fetus Procedures 22366: NST/ monitoring HISTORY ----- OB History 2. Para 1 MATERNAL ASSESSMENT ----- Physical Exam Weight 65 kg. BMI 28.12 kg/m . Blood pressure 146/97 mmHg. Heart rate 73 bpm Blood Pressure Profile: Right arm: # 1 138/97 mmHg, MAP 110.7 mmHg Repeat METHOD ----- EFM ----- [facility] . Number of fetuses: 1 DATING ----- GA by prior assessment 29 w + 3 d CORNELL by prior assessment: 04/03/2025 Method of dating: Restore dating from previous exam Assigned: based on stated CORNELL, selected on 11/20/2024 Assigned GA 29 w + 3 d Assigned CORNELL: 04/03/2025 NON STRESS TEST ----- NST interpretation: reactive, reassuring for gestational age. Test duration 39 min. Baseline FHR 135 bpm. Baseline variability: moderate. Accelerations: Present. Decelerations: Not present. Uterine activity: absent COMMENT ----- Nursing notes: Patient reports positive movement with no bleeding, leaking or paramjit. MFM specialist, Dr. Tapia reviewed findings. Dr. Tapia recommends weekly labs drawn for patient for GHTN. I spoke with SAL Burgos from Dr. Good's office. Patient scheduled once weekly. IMPRESSION ----- Reactive for gestational age. Patient is overdue for preeclampsia labs; office called and advised to order labs. Thank you for allowing us to participate in the care of this patient. Procedure Note Sarita Tapia MD - 01/19/2025 [facility] TOBIN ORTIZ ----- Pat. Name:Vidal NANCE Date:01/19/2025 8:43am Pat. NO: [id number] MD:TAMERA GOOD MD [place] :1995Age:29 ----- INDICATION ----- Family History of Congenital Heart Defect, Suspected in Fetus Marginal Cord Insertion Intrauterine Growth Restriction (IUGR) Preeclampsia, Mild CODING ----- Diagnoses O35.2XX0: Maternal care for (suspected) hereditarydisease in fetus Z3A.29: Weeks of gestation Z36.2: Encounter for other screeningfollow-up O69.89X0: Labor and delivery complicated by othercord complications Z3A.29: Weeks of gestation O14.03: Mild to moderate pre-eclampsia O36.5930: Maternal care for other known orsuspected poor growth O69.89X0: Labor and delivery complicated by othercord complications O35.2XX0: Maternal care for (suspected) hereditarydisease in fetus Procedures 71116: NST/ monitoring HISTORY ----- OB History 2. Para 1 MATERNAL ASSESSMENT ----- Physical Exam Weight 65 kg. BMI 28.12 kg/m . Blood paptjilr753/97 mmHg. Heart rate 73 bpm Blood Pressure Profile: Right arm: # 1 138/97 mmHg, MAP 110.7 mmHg Repeat METHOD ----- EFM ----- [facility] . Number of fetuses: 1 DATING ----- GA by prior [id number] w + 3 d CORNELL by prior assessment:04/03/2025 Method of dating:Restore dating from previous exam Assigned:based on stated CORNELL, selected on 11/20/2024 Assigned GA29 w + 3 d Assigned CORNELL:04/03/2025 NON STRESS TEST ----- NST interpretation: reactive, reassuring for gestational age. Testduration 39 min. Baseline FHR 135 bpm. Baseline variability: moderate. Accelerations: Present. Decelerations: Not present. Uterineactivity: absent COMMENT ----- Nursing notes: Patient reports positive movement with no bleeding,leaking or paramjit. MFM specialist, Dr. Tapia reviewed findings. Dr. Tapia recommends weekly labs drawn for patient Analilia. I spoke with SAL Burgos from Dr. Good's office. Patient scheduled once weekly. IMPRESSION ----- Reactive for gestational age. Patient is overdue for preeclampsia labs; office called and advised tooer labs. Thank you for allowing us to participate in the care of this patient. us Sarita Tapia MD US ORDERABLES Final Result * US OB FOLLOW UP + UMB ART (01/19/2025 7:39 AM CDT) Only the most recent of2 resultswithin the time period is included. Anatomical Region Laterality Modality Pelvis Ultrasound 01/19/2025 7:17 AM CDT Narrative 01/19/2025 8:16 AM CDT STL FOLLOW UP ----- Pat. Name: ROXANA NANCE Study Date: 01/19/2025 7:17am Pat. NO: [id number] Referring MD: TAMERA GOOD MD Site: [facility] Risk Manager: Misti Steele RDMS : 1995 Age: 29 ----- INDICATION ----- Family History of Congenital Heart Defect, Suspected in Fetus Marginal Cord Insertion Intrauterine Growth Restriction (IUGR) Preeclampsia, Mild CODING ----- Diagnoses O35.2XX0: Maternal care for (suspected) hereditary disease in fetus Z3A.29: Weeks of gestation Z36.2: Encounter for other screening follow-up O69.89X0: Labor and delivery complicated by other cord complications O14.03: Mild to moderate pre-eclampsia O36.5930: Maternal care for other known or suspected poor growth Procedures 30971: Ultrasound, uterus, real time with image documentation, follow up, transabdominal approach per fetus 49069: Doppler velocimetry, ; umbilical artery 99015: Doppler velocimetry, ; middle cerebral artery HISTORY ----- OB History 2. Para 1 METHOD ----- Transabdominal ultrasound examination ----- [facility] . Number of fetuses: 1 DATING ----- GA by prior assessment 29 w + 3 d CORNELL by prior assessment: 04/03/2025 Ultrasound examination on: 01/19/2025 GA by U/S based upon: AC, BPD, EFW, Femur, HC GA by U/S 26 w + 3 d CORNELL by U/S: 04/24/2025 Method of dating: Restore dating from previous exam Assigned: based on stated CORNELL, selected on 11/20/2024 Assigned GA 29 w + 3 d Assigned CORNELL: 04/03/2025 BIOMETRY ----- BPD 68.8 mm 27w 5d 3% Hadlock OFD 90.3 mm 29w 1d 41% [place] HC 254.8 mm 27w 5d <1% Hadlock AC 214.9 mm 26w 0d <1% Hadlock Femur 45.0 mm 24w 6d <1% Hadlock HC / AC 1.19 95% Nicolaides Weight Calculation: EFW 859 g 25w 4d <1% Hadlock EFW (lb,oz) 1 lb 14 oz EFW by Hadlock ([id number]) Head / Face / Neck Biometry: Physical Education Professor 3.5 mm Extremities / Bony Struc Biometry: FL / BPD 0.65 FL / HC 0.18 FL / AC 0.21 GENERAL EVALUATION ----- Cardiac activity present. FHR 137 bpm. movements: present. Presentation: breech Placenta: Placental site: left lateral with anterior accessory lobe Umbilical cord: Cord vessels: 3 vessel cord. Amniotic fluid: Amount of AF: normal amount. MVP 5.5 cm. MARILU 12.0 cm. Q1 5.5 cm, Q2 3.6 cm, Q3 2.9 cm, Q4 0.0 cm DOPPLER ----- Umbilical Artery: PI 1.34 96% Betsy RI 0.74 90% Betsy PS 25.95 cm/s <1% Ebbing ED 7.39 cm/s TAmax 15.22 cm/s <1% Ebbing MD 7.26 cm/s S / D 3.82 88% Betsy Mid Cerebral Artery: PI 1.73 25% Bahlmann RI 0.80 49% Bahlmann PS 32.15 cm/s PS 0.82 MoM ED 6.53 cm/s TAmax 14.80 cm/s MD 6.21 cm/s S / D 4.92 CPR PI 1.29 1% Ebbing ANATOMY ----- The following structures appear normal: Head / Neck Cranium. Lateral ventricles. Choroid plexus. Midline falx. Cavum septi pellucidi. Heart / Thorax Diaphragm. Abdomen Stomach. Kidneys. Bladder. GROWTH OVERVIEW ----- Exam date GA BPD (mm) HC (mm) AC (mm) FL (mm) HL (mm) EFW (g) 11/20/2024 20w 6d 48.5 41% 178.5 19% 155.5 39% 31.4 10% 29.6 11% 344 19% 12/18/2024 24w 6d 55.2 1% 211.2 1% 185.1 6% 39.5 1% 558 2% 01/05/2025 27w 3d 64.8 8% 247.3 9% 208.6 3% 40.8 <1% 735 <1% 01/19/2025 29w 3d 68.8 3% 254.8 <1% 214.9 <1% 45.0 <1% 859 <1% COMMENT ----- Patient's name and date of were verified by the concrete plant laborer prior to the exam IMPRESSION ----- 1. Hill living fetus with a gestational age of 29w 3d, based on the reported clinical dates. 2. Umbilical (UA) Doppler finding of: S/D 3.82 (88%), PI 1.34 (96%), RI 0.74 (90%) which is ELEVATED for gestational age. No evidence of absent or reverse of end diastolic flow (AEDV/REDV). 3. The CPR is 1.29 which is not indicative of cerebral shunting. 4. The ductus venosus waveform demonstrates normal positive a-wave flow. 5. The amniotic fluid is normal for gestational age (MVP: 5.5 cm, MARILU: 12 cm). 6. Estimated weight is 859 g (<1%ile) with abdominal circumference at the <1%ile. There has been interval growth. Recommendations: - Continue weekly Doppler interrogation studies. - Continue serial growth at 2 week intervals. - Continue twice weekly surveillance as planned. Thank you for allowing us to participate in the care of this patient. Procedure Note Carla Ng MD - 01/19/2025 STL FOLLOW UP ----- Pat. Name:NANCE ANGELITAZarina Date:01/19/2025 7:17am Pat. NO: [id number] MD:TAMERA GOOD [facility]Misti Steele RDMS :1995Age:29 ----- INDICATION ----- Family History of Congenital Heart Defect, Suspected in Fetus Marginal Cord Insertion Intrauterine Growth Restriction (IUGR) Preeclampsia, Mild CODING ----- Diagnoses O35.2XX0: Maternal care for (suspected) hereditarydisease in fetus Z3A.29: Weeks of gestation Z36.2: Encounter for other screeningfollow-up O69.89X0: Labor and delivery complicated by othercord complications O14.03: Mild to moderate pre-eclampsia O36.5930: Maternal care for other known orsuspected poor growth Procedures 35473: Ultrasound, uterus, real time withimage documentation, follow up, transabdominal approach per fetus 87057: Doppler velocimetry, ; umbilicalartery 61771: Doppler velocimetry, ; middle cerebralartery HISTORY ----- OB History 2. Para 1 METHOD ----- Transabdominal ultrasound examination ----- Hill . Number of fetuses: 1 DATING ----- GA by prior [id number] w + 3 d CORNELL by prior assessment:04/03/2025 Ultrasound examination on:01/19/2025 GA by U/S based upon:AC, BPD, EFW, Femur, HC GA by U/S26 w + 3 d CORNELL by U/S:04/24/2025 Method of dating:Restore dating from previous exam Assigned:based on stated CORNELL, selected on 11/20/2024 Assigned GA29 w + 3 d Assigned CORNELL:04/03/2025 BIOMETRY ----- BPD 68.8 mm 27w 5d 3%Hadlock OFD 90.3 mm 29w 1d 41%[place] HC 254.8 mm 27w 5d <1%Hadlock AC 214.9 mm 26w 0d <1%Hadlock Femur 45.0 mm 24w 6d <1%Hadlock HC / AC 1.19 95%Nicolaides Weight Calculation: EFW 859 g 25w 4d <1%Hadlock EFW (lb,oz) 1 lb 14 oz EFW by Hadlock ([id number]) Head / Face / Neck Biometry: Physical Education Professor 3.5mm Extremities / Bony Struc Biometry: FL / BPD 0.65 FL / HC 0.18 FL / AC 0.21 GENERAL EVALUATION ----- Cardiac activity present. FHR 137 bpm. movements: present.Presentation: breech Placenta: Placental site: left lateral with anterior accessory lobe Umbilical cord: Cord vessels: 3 vessel cord. Amniotic fluid: Amount of AF: normal amount. MVP 5.5 cm. MARILU 12.0 cm. Q15.5 cm, Q2 3.6 cm, Q3 2.9 cm, Q4 0.0 cm DOPPLER ----- Umbilical Artery: PI 1.34 96%Betsy RI 0.74 90%Betsy PS 25.95 cm/s <1%Ebbing ED 7.39 cm/s TAmax 15.22 cm/s <1%Ebbing MD 7.26 cm/s S / D 3.82 88%Betsy Mid Cerebral Artery: PI 1.73 25%Bahlmann RI 0.80 49%Bahlmann PS 32.15 cm/s PS 0.82 MoM ED 6.53 cm/s TAmax 14.80 cm/s MD 6.21 cm/s S / D 4.92 CPR PI 1.29 1%Ebbing ANATOMY ----- The following structures appear normal: Head / Neck Cranium. Lateral ventricles. Choroid plexus.Midline falx. Cavum septi pellucidi. Heart / Thorax Diaphragm. Abdomen Stomach. Kidneys. Bladder. GROWTH OVERVIEW ----- Exam date GA BPD (mm) HC (mm) AC (mm) FL(mm) HL (mm) EFW (g) 11/20/2024 20w 6d 48.5 41% 178.5 19% 155.5 39%31.4 10% 29.6 11% 344 19% 12/18/2024 24w 6d 55.2 1% 211.2 1% 185.1 6%39.5 1% 558 2% 01/05/2025 27w 3d 64.8 8% 247.3 9% 208.6 3%40.8 <1% 735 <1% 01/19/2025 29w 3d 68.8 3% 254.8 <1% 214.9 <1%45.0 <1% 859 <1% COMMENT ----- Patient's name and date of were verified by the concrete plant laborer prior tothe exam IMPRESSION ----- 1. Hill living fetus with a gestational age of 29w 3d, based on thereported clinical dates. 2. Umbilical (UA) Doppler finding of: S/D 3.82 (88%), PI 1.34 (96%), RI0.74 (90%) which is ELEVATED for gestational age. No evidence of absent or reverse of end diastolic flow (AEDV/REDV). 3. The CPR is 1.29 which is not indicative of cerebral shunting. 4. The ductus venosus waveform demonstrates normal positive a-wave flow. 5. The amniotic fluid is normal for gestational age (MVP: 5.5 cm, MARILU: 12cm). 6. Estimated weight is 859 g (<1%ile) with abdominal circumferenceat the <1%ile. There has been interval growth. Recommendations: - Continue weekly Doppler interrogation studies. - Continue serial growth at 2 week intervals. - Continue twice weekly surveillance as planned. Thank you for allowing us to participate in the care of this patient. us Sarita Tapia MD US ORDERABLES Final Result * ECHO 2D + COLOR FLOW VELOCITY (12/18/2024 9:49 AM NON FERROUS MATERIAL HANDLER) Narrative 12/18/2024 9:49 AM NON FERROUS MATERIAL HANDLER Order information only. Exam was auto-finalized. us Irwin Fontaine MD US ORDERABLES Final Re sult * US OB FOLLOW UP PER FETUS (12/18/2024 9:49 AM NON FERROUS MATERIAL HANDLER) Anatomical Region Laterality Modality Pelvis Ultrasound 12/18/2024 8:33 AM NON FERROUS MATERIAL HANDLER Narrative 12/18/2024 10:04 AM NON FERROUS MATERIAL HANDLER STL FOLLOW UP ----- Pat. Name: ROXANA NANCE Study Date: 12/18/2024 8:33am Pat. NO: [id number] Referring MD: TAMERA GOOD MD Site: [facility] Risk Manager: Anna Vivar RDMS : 1995 Age: 29 ----- INDICATION ----- Family History of Congenital Heart Defect, Suspected in Fetus Screening Follow-Up Marginal Cord Insertion CODING ----- Diagnoses O35.2XX0: Maternal care for (suspected) hereditary disease in fetus Z3A.24: Weeks of gestation Z36.2: Encounter for other screening follow-up O69.89X0: Labor and delivery complicated by other cord complications Procedures 77460: Ultrasound, uterus, real time with image documentation, follow up, transabdominal approach per fetus 33497: Echocardiography, , cardiovascular system, real time with image documentation (2D), with or without M-mode recording 20160: Doppler echocardiography color flow velocity mapping 97365: Doppler echocardiography, , cardiovascular system, pulsed wave and/or continuous wave with spectral display; complete 60607: Umbilical Artery Doppler HISTORY ----- OB History 2. Para 1 METHOD ----- Transabdominal ultrasound examination ----- [facility] . Number of fetuses: 1 DATING ----- GA by prior assessment 24 w + 6 d CORNELL by prior assessment: 04/03/2025 Ultrasound examination on: 12/18/2024 GA by U/S based upon: AC, BPD, EFW, Femur, HC GA by U/S 23 w + 0 d CORNELL by U/S: 04/16/2025 Method of dating: Restore dating from previous exam Assigned: based on stated CORNELL, selected on 11/20/2024 Assigned GA 24 w + 6 d Assigned CORNELL: 04/03/2025 BIOMETRY ----- BPD 55.2 mm 22w 6d 1% Hadlock OFD 76.6 mm 25w 1d 61% [place] HC 211.2 mm 23w 1d 1% Hadlock AC 185.1 mm 23w 2d 6% Hadlock Femur 39.5 mm 22w 5d 1% Hadlock HC / AC 1.14 57% Nicolaides Weight Calculation: EFW 558 g 22w 6d 2% Hadlock EFW (lb,oz) 1 lb 4 oz EFW by Hadlock ([id number]) Head / Face / Neck Biometry: Physical Education Professor 4.9 mm Thorax / Lungs Biometry: Thoracic circ 151.6 mm 4% [place] Thoracic area 18.0 cm ThC / AC 0.82 Heart / Great Vessels Biometry: Cardiac axis 49 Cardiac circ 79.1 mm Cardiac area 4.8 cm CC / ThC 0.52 CA / Jackson 0.27 PA main 5.2 mm Ductus art. 3.0 mm 19% Lugo Rt PA branch 2.0 mm Lt PA branch 2.3 mm Ao asc 3.7 mm Ao isthmus 2.8 mm Ao desc 3.7 mm PA main / Ao asc 1.41 McGoon Index mod. 1.2 Ao isthmus / Ductus art. 0.93 IVC 3.3 mm SVC 2.7 mm Extremities / Bony Struc Biometry: FL / BPD 0.72 FL / HC 0.19 FL / AC 0.21 GENERAL EVALUATION ----- Cardiac activity present. FHR 136 bpm. movements: present. Presentation: breech Placenta: Placental site: left lateral with anterior accessory lobe Umbilical cord: Cord vessels: 3 vessel cord. Insertion site: marginal insertion Amniotic fluid: Amount of AF: normal amount. MVP 3.9 cm ECHOCARDIOGRAM ----- Situs situs solitus (normal) Cardiac position levocardia (normal) Cardiac axis normal Cardiac size normal (approx. 1/3 of thoracic area) Cardiac rhythm regular (normal) 4-chamber view normal LVOT view normal RVOT view normal 3-vessel view normal 7-cjbmuo-zilpyww view normal High short axis view normal Low short axis view normal Aortic arch view normal Ductal arch view normal Bicaval view normal Venous-atrial connections normal size and morphology AV connections normal alignment VA connections normal size and morphology IVC Normal SVC Normal Pulmonary veins normal size and morphology Right atrium Normal Left atrium Normal Atrial septum normal size and morphology Foramen ovale normal (in the central third/half, flap valve in left atrium) Right ventricle Normal Left ventricle Normal Ventricular septum normal size and morphology Tricuspid valve normal size and morphology Mitral valve normal size and morphology Pulmonary valve normal size and morphology Aortic valve normal size and morphology Cross-over gr. arteries anterior great artery (confirmed to be the pulmonary artery by its branching) which crosses the course of the proximal aorta, indicative of normal relationship of the great arteries Main PA the main pulmonary artery can be seen bifurcating into the arterial duct and the right pulmonary artery Pulmonary arteries Normal Ascending aorta normal size and morphology Ductal arch Normal Aortic arch Normal Brachioceph. arteries normal size and morphology Descending aorta normal size and morphology Ductus venosus Normal Echogenic focus no Linear insertion of AV valves no Pericardial effusion no Cardiac Biometry: RA width diast 8.4 mm RV width diast 7.0 mm 3% Lugo RV wall diast 2.0 mm 13% Lugo LA width diast 6.8 mm LV width diast 8.5 mm 16% Lugo LV wall diast 1.7 mm 2% Lugo IV Septum diast 1.8 mm 6% Lugo LVOT diam 3.6 mm LVOT area 10.0 mm TV annulus diast 7.4 mm PV annulus syst 4.9 mm MV annulus diast 8.0 mm AoV annulus syst 3.9 mm MV annulus diast / TV annulus diast 1.08 AoV annulus syst / PV annulus syst 0.80 Heart Z-Scores: Z- FL Z- BPD Z- GA Z- EFW Zscore by RV width diast 7.0 mm -1.35 -1.02 -1.95 Bond LV width diast 8.5 mm 0.29 0.48 -0.26 Bond TV annulus 7.4 mm 0.50 0.74 -0.13 Bond diast MV annulus 8.0 mm 1.36 1.54 0.70 Bond diast PV annulus syst 4.9 mm 1.25 1.50 0.47 Bond AoV annulus 3.9 mm 0.91 1.01 0.15 Bond syst PA main 5.2 mm 0.72 1.14 0.27 Varun Ductus art. 3.0 mm 0.19 0.41 -0.10 Varun Rt PA branch 2.0 mm -1.01 -0.76 -1.41 Varun Lt PA branch 2.3 mm 0.25 0.49 -0.18 Varun Ao asc 3.7 mm -0.70 -0.38 -1.20 Varun Ao isthmus 2.8 mm 0.62 0.35 -0.46 0.75 Ziyad Ao desc 3.7 mm 0.66 0.92 0.01 Varun IVC 3.3 mm 1.30 1.53 0.91 Varun Cardiac Doppler: Tricuspid Valve: E-wave 31.08 cm/s 12% Hecher A-wave 48.94 cm/s 16% Hecher E / A 0.64 32% Hecher Mitral Valve: E-wave 36.08 cm/s 67% Hecher A-wave 54.30 cm/s 60% Hecher E / A 0.66 62% Hecher Pulmonary Valve: Vmax 62.88 cm/s Left Ventricular Outflow Tract: Vmax 60.00 cm/s Peak PG 1.44 mmHg DOPPLER ----- Umbilical Artery: normal PI 1.22 72% Betsy RI 0.70 54% Betsy PS 44.30 cm/s ED 14.21 cm/s TAmax 26.92 cm/s MD 14.15 cm/s S / D 3.41 52% Betsy Aortic Isthmus: PS 76.10 cm/s Ductus Arteriosus: PS 97.53 cm/s ANATOMY ----- The following structures appear normal: Head / Neck Cranium. Lateral ventricles. Choroid plexus. Midline falx. Cavum septi pellucidi. Cerebellum. Cisterna magna. Heart / Thorax 4-chamber view. RVOT view. LVOT view. 3-vessel view. 1-tknzws-necxyig view. Diaphragm. Abdomen Stomach. Kidneys. Bladder. GROWTH OVERVIEW ----- Exam date GA BPD (mm) HC (mm) AC (mm) FL (mm) HL (mm) EFW (g) 11/20/2024 20w 6d 48.5 41% 178.5 19% 155.5 39% 31.4 10% 29.6 11% 344 19% 12/18/2024 24w 6d 55.2 1% 211.2 1% 185.1 6% 39.5 1% 558 2% COMMENT ----- Patient's name and date of were verified by the concrete plant laborer prior to the exam IMPRESSION ----- -Single living fetus with a gestational age of 24w 6d, based on the reported dates. - growth restriction is present with the estimated weight at the 2% and abdominal circumference at the 6%. -The head circumference is 2.3 SD below the mean. Head circumference between 2 and 3 standard deviations below the mean is more likely to be constitutional; below 3 standard deviations is more likely to have a pathologic cause. -The umbilical artery doppler is normal for gestational age. Forward flow is noted without signs of absent end diastolic flow. -The amniotic fluid is normal for gestational age. (MVP of 3.9 cm ) -Marginal placental cord insertion. A screening echocardiogram was performed secondary to family history of congenital heart defect. The echocardiogram is normal to the extent of ultrasound views. The cardiac size is appropriate. Normal situs and cardiac position. Atria and ventricles appear normal in size and shape. Normal crossing of the outflow tracts noted. The cardiac septum appears intact. There is right to left flow through the foramen ovale. The ductal and aortic arches appear to be normal. The valvular flow appears to be appropriate. Normal rhythm on m-mode. The ultrasound findings and limitations were reviewed with the patient via video. A echocardiogram cannot rule out all anomalies. For example, small VSD or ASD, subtle valve abnormalities, subtle abnormalities of the great vessels (aorta and pulmonary artery), or total anomalous pulmonary venous return may go undetected. echocardiogram can also not assess abnormalities such as patent foramen ovale or patent ductus arteriosus. Growth and dopplers in 2 weeks. See separate consultation note. Thank you for allowing us to participate in the care of this patient. Procedure Note Juani Acosta MD - 12/18/2024 STL FOLLOW UP ----- Pat. Name:Vidal NANCE Date:12/18/2024 8:33am Pat. NO: [id number] :TAMERA GOOD MD [facility]Anna Vivar RDMS :1995Age:29 ----- INDICATION ----- Family History of Congenital Heart Defect, Suspected in Fetus Screening Follow-Up Marginal Cord Insertion CODING ----- Diagnoses O35.2XX0: Maternal care for (suspected) hereditarydisease in fetus Z3A.24: Weeks of gestation Z36.2: Encounter for other screeningfollow-up O69.89X0: Labor and delivery complicated by othercord complications Procedures [id number]: Ultrasound, uterus, real time withimage documentation, follow up, transabdominal approach per fetus 10647: Echocardiography, , cardiovascularsystem, real time with image documentation (2D), with or without M-mode recording 23147: Doppler echocardiography color flowvelocity mapping 62403: Doppler echocardiography, ,cardiovascular system, pulsed wave and/or continuous wave with spectral display; complete 73867: Umbilical Artery Doppler HISTORY ----- OB History 2. Para 1 METHOD ----- Transabdominal ultrasound examination ----- [facility] . Number of fetuses: 1 DATING ----- GA by prior [id number] w + 6 d CORNELL by prior assessment:04/03/2025 Ultrasound examination on:12/18/2024 GA by U/S based upon:AC, BPD, EFW, Femur, HC GA by U/S23 w + 0 d CORNELL by U/S:04/16/2025 Method of dating:Restore dating from previous exam Assigned:based on stated CORNELL, selected on 11/20/2024 Assigned GA24 w + 6 d Assigned CORNELL:04/03/2025 BIOMETRY ----- BPD 55.2 mm 22w 6d 1%Hadlock OFD 76.6 mm 25w 1d 61%[place] HC 211.2 mm 23w 1d 1%Hadlock AC 185.1 mm 23w 2d 6%Hadlock Femur 39.5 mm 22w 5d 1%Hadlock HC / AC 1.14 57%Nicolaides Weight Calculation: EFW 558 g 22w 6d 2%Hadlock EFW (lb,oz) 1 lb 4 oz EFW by Hadlock ([id number]) Head / Face / Neck Biometry: Physical Education Professor 4.9mm Thorax / Lungs Biometry: Thoracic circ 151.6 mm4% [place] Thoracic area 18.0 cm ThC / AC 0.82 Heart / Great Vessels Biometry: Cardiac axis 49 Cardiac circ 79.1mm Cardiac area 4.8cm CC / ThC 0.52 CA / Jackson 0.27 PA main 5.2 mm Ductus art. 3.0 mm19% Lugo Rt PA branch 2.0 mm Lt PA branch 2.3 mm Ao asc 3.7 mm Ao isthmus 2.8 mm Ao desc 3.7 mm PA main / Ao asc 1.41 McGoon Index mod. 1.2 Ao isthmus / Ductus art. 0.93 IVC 3.3mm SVC 2.7mm Extremities / Bony Struc Biometry: FL / BPD 0.72 FL / HC 0.19 FL / AC 0.21 GENERAL EVALUATION ----- Cardiac activity present. FHR 136 bpm. movements: present.Presentation: breech Placenta: Placental site: left lateral with anterior accessory lobe Umbilical cord: Cord vessels: 3 vessel cord. Insertion site: marginalinsertion Amniotic fluid: Amount of AF: normal amount. MVP 3.9 cm ECHOCARDIOGRAM ----- Situs situs solitus (normal) Cardiac position levocardia (normal) Cardiac axis normal Cardiac size normal (approx. 1/3 ofthoracic area) Cardiac rhythm regular (normal) 4-chamber view normal LVOT view normal RVOT view normal 3-vessel view normal 7-cphabk-dajypjl view normal High short axis view normal Low short axis view normal Aortic arch view normal Ductal arch view normal Bicaval view normal Venous-atrial connections normal size and morphology AV connections normal alignment VA connections normal size and morphology IVC Normal SVC Normal Pulmonary veins normal size and morphology Right atrium Normal Left atrium Normal Atrial septum normal size and morphology Foramen ovale normal (in the centralthird/half, flap valve in left atrium) Right ventricle Normal Left ventricle Normal Ventricular septum normal size and morphology Tricuspid valve normal size and morphology Mitral valve normal size and morphology Pulmonary valve normal size and morphology Aortic valve normal size and morphology Cross-over gr. arteries anterior great artery(confirmed to be the pulmonary artery by its branching) which crosses the course of theproximal aorta, indicative of normal relationship of the great arteries Main PA the main pulmonary artery canbe seen bifurcating into the arterial duct and the right pulmonary artery Pulmonary arteries Normal Ascending aorta normal size and morphology Ductal arch Normal Aortic arch Normal Brachioceph. arteries normal size and morphology Descending aorta normal size and morphology Ductus venosus Normal Echogenic focus no Linear insertion of AV valves no Pericardial effusion no Cardiac Biometry: RA width diast 8.4 mm RV width diast 7.0 mm 3%Lugo RV wall diast 2.0 mm 13%Lugo LA width diast 6.8 mm LV width diast 8.5 mm 16%Lugo LV wall diast 1.7 mm 2%Lugo IV Septum diast 1.8 mm6% Lugo LVOT diam 3.6mm LVOT area 10.0mm TV annulus diast 7.4mm PV annulus syst 4.9mm MV annulus diast 8.0mm AoV annulus syst 3.9mm MV annulus diast / TV annulus diast 1.08 AoV annulus syst / PV annulus syst 0.80 Heart Z-Scores: Z- FL Z- BPD Z-GA Z- EFW Zscore by RV width diast 7.0 mm -1.35 -1.02-1.95 Bond LV width diast 8.5 mm 0.29 0.48-0.26 Bond TV annulus 7.4 mm 0.50 0.74-0.13 Bond diast MV annulus 8.0 mm 1.36 1.540.70 Bond diast PV annulus syst 4.9 mm 1.25 1.500.47 Bond AoV annulus 3.9 mm 0.91 1.010.15 Bond syst PA main 5.2 mm 0.72 1.140.27 Bond Ductus art. 3.0 mm 0.19 0.41-0.10 Bond Rt PA branch 2.0 mm -1.01 -0.76-1.41 Bond Lt PA branch 2.3 mm 0.25 0.49-0.18 Bond Ao asc 3.7 mm -0.70 -0.38-1.20 Bond Ao isthmus 2.8 mm 0.62 0.35-0.46 0.75 Ziyad Ao desc 3.7 mm 0.66 0.920.01 Bond IVC 3.3 mm 1.30 1.530.91 Bond Cardiac Doppler: Tricuspid Valve: E-wave 31.08 cm/s12% Hecher A-wave 48.94 cm/s16% Hecher E / A 0.6432% Hecher Mitral Valve: E-wave 36.08 cm/s67% Hecher A-wave 54.30 cm/s60% Hecher E / A 0.6662% Hecher Pulmonary Valve: Vmax 62.88 cm/s Left Ventricular Outflow Tract: Vmax 60.00cm/s Peak PG 1.44mmHg DOPPLER ----- Umbilical Artery: normal PI 1.22 72%Betsy RI 0.70 54%Betsy PS 44.30 cm/s ED 14.21 cm/s TAmax 26.92 cm/s MD 14.15 cm/s S / D 3.41 52%Betsy Aortic Isthmus: PS 76.10 cm/s Ductus Arteriosus: PS 97.53cm/s ANATOMY ----- The following structures appear normal: Head / Neck Cranium. Lateral ventricles. Choroid plexus.Midline falx. Cavum septi pellucidi. Cerebellum. Cisterna magna. Heart / Thorax 4-chamber view. RVOT view. LVOT view. 3-vesselview. 5-cyerua-xtijdfn view. Diaphragm. Abdomen Stomach. Kidneys. Bladder. GROWTH OVERVIEW ----- Exam date GA BPD (mm) HC (mm) AC (mm) FL(mm) HL (mm) EFW (g) 11/20/2024 20w 6d 48.5 41% 178.5 19% 155.5 39%31.4 10% 29.6 11% 344 19% 12/18/2024 24w 6d 55.2 1% 211.2 1% 185.1 6%39.5 1% 558 2% COMMENT ----- Patient's name and date of were verified by the concrete plant laborer prior tothe exam IMPRESSION ----- -Single living fetus with a gestational age of 24w 6d, based on thereported dates. - growth restriction is present with the estimated weight atthe 2% and abdominal circumference at the 6%. -The head circumference is 2.3 SD below the mean. Head circumferencebetween 2 and 3 standard deviations below the mean is more likely to be constitutional; below 3 standard deviations is more likely tohave a pathologic cause. -The umbilical artery doppler is normal for gestational age. Forward flowis noted without signs of absent end diastolic flow. -The amniotic fluid is normal for gestational age. (MVP of 3.9 cm ) -Marginal placental cord insertion. A screening echocardiogram was performed secondary to family historyof congenital heart defect. The echocardiogram is normal to the extent of ultrasound views. The cardiac size is appropriate. Normal situs and cardiac position. Atria and ventricles appear normal in size and shape. Normal crossing ofthe outflow tracts noted. The cardiac septum appears intact. There is right to left flow through the foramen ovale. The ductaland aortic arches appear to be normal. The valvular flow appears to be appropriate. Normal rhythm on m-mode. The ultrasound findings and limitations were reviewed with the patient idris. A echocardiogram cannot rule out all anomalies. For example, smallVSD or ASD, subtle valve abnormalities, subtle abnormalities of the great vessels (aorta and pulmonary artery), or totalanomalous pulmonary venous return may go undetected. echocardiogram can also not assess abnormalities such aspatent foramen ovale or patent ductus arteriosus. Growth and dopplers in 2 weeks. See separate consultation note. Thank you for allowing us to participate in the care of this patient. us Irwin Fontaine MD US ORDERABLES Final Re sult * US OB DETAIL SINGLE GEST (11/20/2024 5:00 PM NON FERROUS MATERIAL HANDLER) Anatomical Region Laterality Modality Pelvis Ultrasound 11/20/2024 2:02 PM NON FERROUS MATERIAL HANDLER Narrative 11/20/2024 3:42 PM NON FERROUS MATERIAL HANDLER STL COMP ----- Pat. Name: ROXANA NANCE Study Date: 11/20/2024 2:02pm Pat. NO: [id number] Referring MD: TAMERA GOOD MD Site: [facility] Risk Manager: Chikis Monique RDMS : 1995 Age: 29 ----- INDICATION ----- Anatomy Survey no genetics Family History of Congenital Heart Defect, G1 VSD, transposition, situs inversus Suspected in Fetus CODING ----- Diagnoses Z3A.20: Weeks of gestation O35.2XX0: Maternal care for (suspected) hereditary disease in fetus Z36.3: Encounter for screening for malformations Procedures [id number]: Ultrasound, uterus, real time with image documentation, and maternal evaluation plus detailed anatomic examination, transabdominal approach HISTORY ----- OB History 2. Para 1 MATERNAL ASSESSMENT ----- Physical Exam Weight 65 kg. BMI 28.12 kg/m METHOD ----- Transabdominal ultrasound examination ----- [facility] . Number of fetuses: 1 DATING ----- Method of dating: based on stated CORNELL GA by prior assessment 20 w + 6 d CORNELL by prior assessment: 04/03/2025 Ultrasound examination on: 11/20/2024 GA by U/S based upon: AC, BPD, EFW, Femur, HC GA by U/S 20 w + 2 d CORNELL by U/S: 04/07/2025 Assigned: based on stated CORNELL, selected on 11/20/2024 Assigned GA 20 w + 6 d Assigned CORNELL: 04/03/2025 BIOMETRY ----- BPD 48.5 mm 20w 5d 41% Hadlock OFD 62.3 mm 21w 2d 67% [place] HC 178.5 mm 20w 2d 19% Hadlock Cerebellum tr 21.5 mm 21w 0d 46% Hahn Nuchal fold 3.3 mm AC 155.5 mm 20w 5d 39% Hadlock Femur 31.4 mm 19w 5d 10% Hadlock Humerus 29.6 mm 19w 5d 11% Enid HC / AC 1.15 39% Nicolaides Weight Calculation: EFW 344 g 20w 1d 19% Hadlock EFW (lb,oz) 0 lb 12 oz EFW by Hadlock (PVE-CO-LP-FL) Head / Face / Neck Biometry: Physical Education Professor 5.4 mm CM 6.3 mm 81% Nicolaides Inner IOD 13.5 mm Nasal 7.3 mm bone Extremities / Bony Struc Biometry: FL / BPD 0.65 3% Hadlock FL / HC 0.18 13% Hadlock FL / AC 0.20 6% Hadlock GENERAL EVALUATION ----- Cardiac activity present. FHR 151 bpm. movements: present. Presentation: transverse, head maternal right Placenta: Placental site: posterior left lateral with anterior accessory lobe Umbilical cord: Cord vessels: 3 vessel cord. Insertion site: placental insertion: normal Amniotic fluid: Amount of AF: normal amount. MVP 6.0 cm ANATOMY ----- The following structures appear normal: Head / Neck Cranium. Lateral ventricles. Choroid plexus. Midline falx. Cavum septi pellucidi. Cerebellum. Cisterna magna. Thalami. Nuchal fold. Face Lips. Profile. Nose. Palate. Orbits. Heart / Thorax 4-chamber view. RVOT view. LVOT view. 3-vessel view. 4-ybunzi-pzrzgbj view. Situs. Aortic arch view. Ductal arch view. Superior vena cava. Inferior vena cava. High short axis view. Cardiac rhythm. Diaphragm. Abdomen Abdominal wall. Stomach. Kidneys. Bladder. Spine Cervical spine. Thoracic spine. Lumbar spine. Sacral spine. Extremities / Arms. Right hand. Left hand. Legs. Right foot. Left foot. Skeleton MATERNAL STRUCTURES ----- Cervix Visualized Approach - Transabdominal: Cervical length 41.2 mm Right Ovary Normal Size 29 mm x 25 mm x 17 mm. Vol 6.5 cm Left Ovary Normal Size 27 mm x 14 mm x 15 mm. Vol 2.9 cm GROWTH OVERVIEW ----- Exam date GA BPD (mm) HC (mm) AC (mm) FL (mm) HL (mm) EFW (g) 11/20/2024 20w 6d 48.5 41% 178.5 19% 155.5 39% 31.4 10% 29.6 11% 344 19% COMMENT ----- Patient's name and date of were verified by the concrete plant laborer before the exam IMPRESSION ----- Viable at 20 weeks gestation. complicated by history of a previous child born with a congenital heart defect. Patient previously declined NIPT. The biometry is consistent with the established gestational age No structural malformations or markers of aneuploidy were identified Amniotic fluid volume is normal There is a posterior left lateral placenta with an anterior accessory lobe. The umbilical cord inserts into the main posterior placental mass but is a marginal placental cord insertion. There are velamentous vessels traveling in the membranes from the main placenta to the accessory placental lobe. The velamentous vessels are not near the cervix and vasa previa is not present. Placenta is not low-lying. Normal cervical length based upon transabdominal ultrasound assessment The ultrasound findings were discussed with the patient over the phone. Patient was given an opportunity to come to the center at [place] for [id number] consult which she declined. Limitations of ultrasound were discussed. Ultrasound cannot identify all structural malformations nor exclude a diagnosis of aneuploidy. We discussed the presence of a marginal placental cord insertion and an accessory lobe of the placenta. Marginal placental cord insertion can be associated with growth restriction and serial growth ultrasounds in third trimester are recommended. Accessory placental lobe is generally associated with a favorable outcome but can increase the risk of hemorrhage and other complications if the accessory lobe is not removed at the time of delivery. Patient's questions were answered. Recommendations: -A follow-up ultrasound with echo was scheduled in 4 weeks -Recommend serial growth ultrasounds every 4 weeks starting at 28 weeks gestation -If growth is normal additional testing and/or early delivery are not indicated Procedure Note Irwin Fontaine MD - 11/20/2024 STL COMP ----- Pat. Name:Vidal NANCE Date:11/20/2024 2:02pm Pat. NO: [id number] MD:TAMERA GOOD [facility]Chikis Monique RDMS :1995Age:29 ----- INDICATION ----- Anatomy Survey no genetics Family History of Congenital Heart Defect, G1 VSD,transposition, situs inversus Suspected in Fetus CODING ----- Diagnoses Z3A.20: Weeks of gestation O35.2XX0: Maternal care for (suspected) hereditarydisease in fetus Z36.3: Encounter for screening formalformations Procedures 49808: Ultrasound, uterus, real time withimage documentation, and maternal evaluation plus detailed anatomic examination,transabdominal approach HISTORY ----- OB History 2. Para 1 MATERNAL ASSESSMENT ----- Physical Exam Weight 65 kg. BMI 28.12 kg/m METHOD ----- Transabdominal ultrasound examination ----- Hill . Number of fetuses: 1 DATING ----- Method of dating:based on stated CORNELL GA by prior [id number] w + 6 d CORNELL by prior assessment:04/03/2025 Ultrasound examination on:11/20/2024 GA by U/S based upon:AC, BPD, EFW, Femur, HC GA by U/S20 w + 2 d CORNELL by U/S:04/07/2025 Assigned:based on stated CORNELL, selected on 11/20/2024 Assigned GA20 w + 6 d Assigned CORNELL:04/03/2025 BIOMETRY ----- BPD 48.5 mm 20w 5d41% Hadlock OFD 62.3 mm 21w 2d67% En[place] HC 178.5 mm 20w 2d19% Hadlock Cerebellum tr 21.5 mm 21w 0d46% Hahn Nuchal fold 3.3 mm AC 155.5 mm 20w 5d39% Hadlock Femur 31.4 mm 19w 5d10% Hadlock Humerus 29.6 mm 19w 5d11% [place] HC / AC 1.15 39%Nicolaides Weight Calculation: EFW 344 g 20w 1d 19%Hadlock EFW (lb,oz) 0 lb 12 oz EFW by Hadlock (LUM-WO-IR-FL) Head / Face / Neck Biometry: Physical Education Professor 5.4 mm CM 6.3 mm 81%Nicolaides Inner IOD 13.5 mm Nasal 7.3 mm bone Extremities / Bony Struc Biometry: FL / BPD 0.65 3%Hadlock FL / HC 0.18 13%Hadlock FL / AC 0.20 6%Hadlock GENERAL EVALUATION ----- Cardiac activity present. FHR 151 bpm. movements: present.Presentation: transverse, head maternal right Placenta: Placental site: posterior left lateral with anterior accessorylobe Umbilical cord: Cord vessels: 3 vessel cord. Insertion site: placentalinsertion: normal Amniotic fluid: Amount of AF: normal amount. MVP 6.0 cm ANATOMY ----- The following structures appear normal: Head / Neck Cranium. Lateral ventricles. Choroid plexus.Midline falx. Cavum septi pellucidi. Cerebellum. Cisterna magna. Thalami. Nuchal fold. Face Lips. Profile. Nose. Palate. Orbits. Heart / Thorax 4-chamber view. RVOT view. LVOT view. 3-vesselview. 6-pnbxlx-stsdnpj view. Situs. Aortic arch view. Ductal arch view. Superior vena cava. Inferiorvena cava. High short axis view. Cardiac rhythm. Diaphragm. Abdomen Abdominal wall. Stomach. Kidneys. Bladder. Spine Cervical spine. Thoracic spine. Lumbar spine.Sacral spine. Extremities / Arms. Right hand. Left hand. Legs. Right foot.Left foot. Skeleton MATERNAL STRUCTURES ----- Cervix Visualized Approach - Transabdominal: Cervical length 41.2mm Right Ovary Normal Size 29 mm x 25 mm x 17 mm. Vol 6.5 cm Left Ovary Normal Size 27 mm x 14 mm x 15 mm. Vol 2.9 cm GROWTH OVERVIEW ----- Exam date GA BPD (mm) HC (mm) AC (mm) FL(mm) HL (mm) EFW (g) 11/20/2024 20w 6d 48.5 41% 178.5 19% 155.5 39%31.4 10% 29.6 11% 344 19% COMMENT ----- Patient's name and date of were verified by the concrete plant laborer beforethe exam IMPRESSION ----- Viable at 20 weeks gestation. complicated by historyof a previous child born with a congenital heart defect. Patient previously declined NIPT. The biometry is consistent with the established gestational age No structural malformations or markers of aneuploidy wereidentified Amniotic fluid volume is normal There is a posterior left lateral placenta with an anterior accessorylobe. The umbilical cord inserts into the main posterior placental mass but is a marginal placental cord insertion. There arevelamentous vessels traveling in the membranes from the main placenta to the accessory placental lobe. The velamentous vessels are notnear the cervix and vasa previa is not present. Placenta is not low-lying. Normal cervical length based upon transabdominal ultrasound assessment The ultrasound findings were discussed with the patient over the phone.Patient was given an opportunity to come to the center at [place] for [id number] consult which she declined.Limitations of ultrasound were discussed. Ultrasound cannot identify all structural malformations nor exclude a diagnosis of fetalaneuploidy. We discussed the presence of a marginal placental cord insertion and an accessory lobe of the placenta. Marginalplacental cord insertion can be associated with growth restriction and serial growth ultrasounds in third trimester arerecommended. Accessory placental lobe is generally associated with a favorable outcome but can increase the risk ofpostpartum hemorrhage and other complications if the accessory lobe is not removed at the time of delivery. Patient's questions wereanswered. Recommendations: -A follow-up ultrasound with echo was scheduled in 4 weeks -Recommend serial growth ultrasounds every 4 weeks starting at 28 weeksgestation -If growth is normal additional testing and/or early deliveryare not indicated us Tamera Good MD ORDERABLES Final Res ult from Last 3 Months Insurance BLUE ACCESS/TRUE BLUE PPO
--- OUTSIDE RECORDS SUMMARY | 2025-01-26 09:34 | XMS_ITS | Encounter Summary ---
Author Organization [facility] Address [address] [place] [address] Care Team Providers Care Body Finisher Name Role Phone Unavailable Primary Care Provider Unavailabl e Reason for Referral * Radiology Services (Routine) - Closed Specialty Diagnoses / Procedures Referred By Ani osullivan Referred To Contact Diagnoses IUGR (intrauterine growth restriction) affecting care of mother, unspecified trimester, other fetus Procedures US OB LTD+UMB ART DOPPLER CHG DOPPLER VELOCIMETRY UMBILICAL ARTERY CHG US UTERUS LIMITED 1> FETUSES Sarita Tapia MD [address], [place] [address] Phone: tel: fax: [facility] Maternal and Health [facility] [address] [place] [address] Phone: tel: fax: Referral ID Status Reason Start Date Expiration Date Visits Re quested Visits Authorized [id number] Closed 01/05/2025 02/05/2026 1 1 Reason for Visit * Radiology Services (Routine) - Closed Specialty Diagnoses / Procedures Referred By Ani osullivan Referred To Contact Diagnoses IUGR (intrauterine growth restriction) affecting care of mother, unspecified trimester, other fetus Procedures US OB LTD+UMB ART DOPPLER CHG DOPPLER VELOCIMETRY UMBILICAL ARTERY CHG US UTERUS LIMITED 1/> FETUSES Sarita Tapia MD [address], [place] [address] Phone: tel: fax: [facility] [address] [place] [address] Phone: tel: fax: Referral ID Status Reason Start Date Expiration Date Visits Re quested Visits Authorized [id number] Closed 01/05/2025 02/05/2026 1 1 Encounter Details Date Type Department Care Team (Late st Contact Info) Description 01/26/2025 8:00 AM CDT Hospital Encounter [facility] [address] [place] [address] Sarita Tapia MD [address], [place] [address] Arrived Social History Tobacco Use Types Packs/Day Years Used Date Smoking Tobacco: Never Assessed Comments Unknown Sex and Gender Information Value Date Recorded Sex Assigned at Not on file 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 Gender Identity Not on file Sexual Orientation Not on file documented as of this encounter Plan of Treatment Upcoming Encounters Date Type Department Care Team (Late st Contact Info) Description 02/02/2025 7:15 AM CDT Appointment [facility] [address] [place] [phone] Sarita Tapia MD [address], [place] [address] 02/02/2025 8:00 AM CDT Appointment [facility] [address] [place] [address] Sarita Tapia MD [address], [place] [address] documented as of this encounter Procedures Procedure Name Priority Date/Time Associated Diagnosis Comments US OB LTD+UMB ART DOPPLER Routine 01/26/2025 8:42 AM CDT IUGR (intrauterine growth restriction) affecting care of mother, unspecified trimester, other fetus documented in this encounter Results * US OB LTD+UMB ART DOPPLER (01/26/2025 8:42 AM CDT) Anatomical Region Laterality Modality Pelvis Ultrasound 01/26/2025 8:11 AM CDT Narrative 01/26/2025 9:22 AM CDT STL LIMITED ----- Pat. Name: ROXANA NANCE Study Date: 01/26/2025 8:11am Pat. NO: [id number] Referring MD: MICHEL GOOD MD Site: [employer] Agent: Misti Steele RDMS : 1995 Age: 29 [...] for (suspected) hereditary disease in fetus Procedures 37397: Ultrasound, uterus, real time with image documentation, limited one or more fetuses 98117: Doppler velocimetry, ; umbilical artery 03052: Doppler velocimetry, ; middle cerebral artery 26268: Doppler echocardiography, , pulsed wave and/or continuous [...] and date of were verified by the primary counselor prior to the exam. IMPRESSION ----- Hill [...] Pat. Name:Vidal NANCE Date:01/26/2025 8:11am Pat. NO: [id number] MD:MICHEL GOOD MD [facility]Misti Steele RDMS :1995Age:29 ----- INDICATION ----- Family [...] care for (suspected) hereditarydisease in fetus Procedures 84845: Ultrasound, uterus, real time withimage documentation, limited one or more fetuses 54252: Doppler velocimetry, ; umbilicalartery 16248: Doppler velocimetry, ; middle cerebralartery 40222: Doppler echocardiography, , pulsedwave and/or continuous wave with spectral display; follow-up or repeat study HISTORY ----- OB History 2. Para 1 METHOD ----- Transabdominal ultrasound examination ----- Hill . Number of fetuses: 1 DATING ----- GA by prior [id number] w + 3 d CORNELL by prior [...] and date of were verified by the primary counselor prior tothe exam. IMPRESSION ----- Hill @ [...] Sarita Tapia MD US ORDERABLES Final Result documented in this encounter Visit Diagnoses Diagnosis IUGR (intrauterine growth restriction) affecting care of mother, unspecified trimester, other fetus documented in this encounter
--- OUTSIDE RECORDS SUMMARY | 2025-01-26 09:34 | XMS_ITS | Encounter Summary ---
Author Organization [facility] Address [address] [place] [address] Care Team Providers Care Property Man Name Role Phone Unavailable Primary Care Provider Unavailabl e Reason for Visit * Radiology Services (Routine) - Open Specialty Diagnoses / Procedures Referred By Ani osullivan Referred To Contact Diagnoses IUGR (intrauterine growth restriction) affecting care of mother, unspecified trimester, other fetus Procedures US BIOPHYSICAL PROF W NST US MONITORING NST Sarita Tapia MD [address] [place] [address] Phone: tel: fax: Referral ID Status Reason Start Date Expiration Date Visits Re quested Visits Authorized [id number] Open 01/05/2025 02/05/2026 1 1 Encounter Details Date Type Department Care Team (Late Contact Info) Description 01/26/2025 7:30 AM CDT Hospital Encounter [facility] Maternal and Health [facility] [address] [place] [phone] Sarita Tapia MD [address] [address] Arrived Social History Tobacco Use Types Packs/Day Years Used Date Smoking Tobacco: Never Assessed Comments Unknown Sex and Gender Information Value Date Recorded Sex Assigned at Not on file 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 Gender Identity Not on file Sexual Orientation Not on file documented as of this encounter Plan of Treatment Upcoming Encounters Date Type Department Care Team (Late Contact Info) Description 02/02/2025 7:15 AM CDT Appointment [facility] Maternal [facility] [address] [place] [phone] Sarita Tapia MD [address] [place] [address] 02/02/2025 8:00 AM CDT Appointment [facility] Maternal [facility] [address] [place] [phone] Sarita Tapia MD [address] [place] [address] Pending Results Name Type Priority Associated Diagnoses Date /Time US BIOPHYSICAL PROF W NST Imaging Routine IUGR (intrauterine growth restriction) affecting care of mother, unspecified trimester, other fetus 01/26/2025 8:46 AM CDT documented as of this encounter Procedures Procedure Name Priority Date/Time Associated Diagnosis Comments US BIOPHYSICAL PROF W NST Routine 01/26/2025 8:46 AM CDT IUGR (intrauterine growth restriction) affecting care of mother, unspecified trimester, other fetus Procedure Note - Sarita Tapia MD - 01/26/2025 8:46 AM CDTThis note is in progress. BPP WITH NST STUDY Pat. Name:Darrin NANCEcarlos Date:01/26/2025 8:46am Pat. NO: [id number] MD:MICHEL GOOD MD [facility] :1995Age:29 INDICATION Family History of Congenital Heart [...] care for (suspected) hereditarydisease in fetus Procedures 44343: Limited 1 or more - MARILU, FHR, position 53695: biophysical profile; with non-stresstesting HISTORY OB History 2. Para 1 MATERNAL ASSESSMENT Physical Exam Weight 67 kg. BMI 28.90 kg/m . Blood rcyndkhk228/103 mmHg. Heart rate 88 bpm Blood Pressure Profile: Right arm: # 1 149/100 mmHg, MAP 116.3 mmHg Repeat METHOD EFM. Transabdominal ultrasound examination. View: Good view Hill . Number of fetuses: 1 DATING GA by prior [id number] w + 3 d CORNELL by prior [...] positive movement and no bleeding,leaking or paramjit. [facility] specialist, Dr. Tapia reviewed findings. BPP ordered. BPP 06/21. Patient is headed to [facility] for prolonged monitoring and blood work for elevated pressures. Patient verbalized understanding and all questionswere answered. Patient scheduled once weekly. IMPRESSION testing @ 30w 3d for preeclampsia without severe features andFGR. -The NST is non-reactive but with one variable noted. -Amniotic fluid indices are within normal limits. - The BPP is 8/10 The patient had elevated BP during the testing. She was sent to triage forpreeclampsia evaluation and prolonged monitoring for 1 hour. Thank you for allowing us to participate in the care of your patient. documented in this encounter Visit Diagnoses Diagnosis IUGR (intrauterine growth restriction) affecting care of mother, unspecified trimester, other fetus documented in this encounter
[2025-01-26 09:45] LABS: Alanine Aminotransferase 26 U/L (6-35); Albumin Level 3.4 g/dL (3.5-5.1); Alkaline Phosphatase 158 U/L (38-126); Anion Gap 7 mmol/L (4-12); Aspartate Amino Transferase 29 U/L (14-36); Bilirubin,Total 0.5 mg/dL (0.2-1.3); Blood Urea Nitrogen 13 mg/dL (7-17); Calcium 8.9 mg/dL (8.4-10.2); Carbon Dioxide 23 mmol/L (22-30); Chloride 104 mmol/L (98-107); Estimated Glomerular Filt Rate > 60; Glucose 102 mg/dL (65-110); Potassium 3.8 mmol/L (3.4-5.0); Sodium 134 mmol/L (137-145); Uric Acid 5.4 mg/dL (2.5-7.5)
[2025-01-26] MEDS: LABETALOL HCL 100 MG TABLET PO (11:12)
--- NOTE | 2025-01-26 11:19 | PM.OBTRLD ---
OB - Triage/Final Diagnosis Visit Information Date of evaluation: 01/26/25 Reason for evaluation: other (preeclampsia) Comments/Additional reasons for admission: I have assessed the risk for this patient, Sunshine Nance, and determined that she would benefit from observation care. Evaluation Laboratory results: Laboratory Tests 01/26/25 09:12 WBC 8.9 RBC 4.38 Hgb 13.4 Hct 39.1 MCV 89.3 MCH 30.6 MCHC 34.3 RDW 12.9 Plt Count 201 MPV 10.5 H Immature Gran % (Auto) 0.6 H Neut % (Auto) 48.9 Lymph % (Auto) 37.1 [place] % (Auto) 8.2 Eos % (Auto) 4.8 H Baso % (Auto) 0.4 Lymph # (Auto) 3.30 H [place] # (Auto) 0.7 H Eos # (Auto) 0.4 H Baso # (Auto) 0.0 Abs Immat Gran (auto) 0.05 H Absolute Neuts (auto) 4.4 Absolute Nucleated RBC 0.000 Nucleated RBC % 0.0 Sodium 134 L Potassium 3.8 Chloride 104 Carbon Dioxide 23 Anion Gap 7 BUN 13 Creatinine 0.61 L Estim Creat Clear Calc Not Reportable Estimated GFR > 60 Glucose 102 Uric Acid 5.4 Calcium 8.9 Total Bilirubin 0.5 AST 29 ALT 26 Alkaline Phosphatase 158 H Total Protein 6.0 L Albumin 3.4 L Vital signs: Vital Signs - 24 hr 01/26/25 09:13 01/26/25 09:30 01/26/25 09:45 Pulse Rate 89 85 87 Blood Pressure 154/100 H 155/102 H 154/102 H 01/26/25 10:00 01/26/25 10:15 01/26/25 10:30 Pulse Rate 83 86 89 Blood Pressure 159/100 H 154/105 H 152/100 H 01/26/25 10:45 01/26/25 11:00 01/26/25 11:12 Pulse Rate 88 83 84 Blood Pressure 148/104 H 152/97 H Comments: Patient sent to labor for monitoring from [facility]. BPP done and 06/19. BP's elevated since this am 150's/100's. No PIH sx. Good FM.PIH labs ok. Will start Labetalol 100 mg and observe until early evening.
== END 2025-01-26 16:30 | disposition home or self-care (01) ==
LOC: ANHOBOP 08:56 → ANHOBPP 08:57
PROVIDERS: PCP Family Medicine; Visit Provider Obstetrics & Gynecology Gynecology
DX: O13.9 Gestational [pregnancy-induced] hypertension without significant proteinuria, unspecified trimester (principal); Z3A.00 Weeks of gestation of pregnancy not specified
CPT/HCPCS: 36415; 80053; 84550; 85025; 99199; A9270

== ENCOUNTER 2025-01-31 11:24 | Observation (INO) | payer BC, SELFPAY ==
[2025-01-31] VITALS (57 sets, daily range): BP systolic 127–176; BP diastolic 76–111; PULSE 75–95; RESP 16–20; TEMP 36.4–36.8; O2SAT 94–100; BMI 29.9
--- OUTSIDE RECORDS SUMMARY | 2025-01-31 11:30 | XMS_ITS | Clinical Summary ---
Author Organization [facility] Address [address] [place] [phone] Phone Care Team Providers Care Dye Range Tender Name Role Phone Unavailable Primary Care Provider Unavailabl e Active Problems Problem Noted Date Diagnosed Date growth restriction antepartum 12/18/2024 Encounters Date Type Department Care Team Description 01/26/2025 8:00 AM CDT - 01/26/2025 11:59 PM CDT Hospital Encounter [facility] Lora Falk [address] [place] [phone] Sarita Tpaia MD Discharge Disposition: Home or Self Care 01/26/2025 7:30 AM CDT - 01/26/2025 11:59 PM CDT Hospital Encounter [facility] Lora Falk [address] [place] [phone] Sarita Tapia MD Discharge Disposition: Home or Self Care 01/19/2025 8:00 AM CDT - 01/19/2025 11:59 PM CDT Hospital Encounter [facility] Lora Falk [address] [place] [phone] Sarita Tapia MD Discharge Disposition: Home or Self Care 01/19/2025 7:15 AM CDT - 01/19/2025 11:59 PM CDT Hospital Encounter [facility] Lora Falk [address] [place] [phone] Sarita Tapia MD Discharge Disposition: Home or Self Care 01/17/2025 External Device Data STL ABSTRACTION Provider, Abstract 01/16/2025 External Device Data STL ABSTRACTION Provider, Abstract 01/13/2025 External Device Data STL ABSTRACTION Provider, Abstract 01/12/2025 8:00 AM CYANIDE FURNACE OPERATOR - 01/12/2025 11:59 PM CYANIDE FURNACE OPERATOR Hospital Encounter [facility] 2022 Lora Falk [address] [place] [phone] Sarita Tapia MD Discharge Disposition: Home or Self Care 01/12/2025 7:15 AM CYANIDE FURNACE OPERATOR - 01/12/2025 11:59 PM CYANIDE FURNACE OPERATOR Hospital Encounter [facility] 2022 Lora Falk [address] [place] [phone] Sarita Tapia MD Discharge Disposition: Home or Self Care 01/05/2025 7:53 AM CYANIDE FURNACE OPERATOR - 01/05/2025 11:59 PM CYANIDE FURNACE OPERATOR Hospital Encounter [facility] 2022 Lora Falk [address] [place] [phone] Juani Acosta MD Discharge Disposition: Home or Self Care 12/30/2024 External Device Data STL ABSTRACTION Provider, Abstract 12/18/2024 10:00 AM CYANIDE FURNACE OPERATOR Video Visit [facility] [address] [place] [phone] Juani Acosta MD 24 weeks gestation of (Primary Dx); growth restriction antepartum 12/18/2024 8:17 AM CYANIDE FURNACE OPERATOR - 12/18/2024 11:59 PM CYANIDE FURNACE OPERATOR Hospital Encounter [facility] 2022 Lora Falk [address] [place] [phone] Irwin Fontaine MD Discharge Disposition: Home or Self Care 12/18/2024 8:09 AM CYANIDE FURNACE OPERATOR - 12/18/2024 11:59 PM CYANIDE FURNACE OPERATOR Hospital Encounter [facility] 2022 Lora Falk [address] [place] [phone] Irwin Fontaine MD Discharge Disposition: Home or Self Care 12/18/2024 Orders Only [facility] Floor S [facility] [address] [place] [phone] Tamera Givens MD Poor growth affecting management of mother in second trimester, single or unspecified fetus (Primary Dx) 12/09/2024 External Device Data STL ABSTRACTION Provider, Abstract 12/03/2024 External Device Data STL ABSTRACTION Provider, Abstract 12/03/2024 External Device Data STL ABSTRACTION Provider, Abstract 11/26/2024 External Device Data STL ABSTRACTION Provider, Abstract 11/25/2024 External Device Data STL ABSTRACTION Provider, Abstract 11/20/2024 1:48 PM CYANIDE FURNACE OPERATOR - 11/20/2024 11:59 PM CYANIDE FURNACE OPERATOR Hospital Encounter [facility] Lora Falk [address] [place] [phone] Tamera Givens MD Discharge Disposition: Home or Self Care from Last 3 Months Social History Tobacco Use Types Packs/Day Years Used Date Smoking Tobacco: Never Assessed Comments Unknown Sex and Gender Information Value Date Recorded Sex Assigned at Not on file Legal Sex Female 7:14 AM CYANIDE FURNACE OPERATOR Gender Identity Not on file Sexual Orientation Not on file Plan of Treatment Upcoming Encounters Date Type Department Care Team (Late st Contact Info) Description 02/02/2025 7:15 AM CDT Appointment [facility] Lora Falk [address] [place] [phone] Sarita Tapia MD [address] [place] [facility] [phone] 02/02/2025 8:00 AM CDT Appointment [facility] Lora Falk [address] [place] [phone] Sarita Tapia MD [address] [place] [phone] Health Maintenance Due Date Last Done Comments DTAP/TDAP/TD VACCINES (1 - Tdap) 2014 HEPATITIS B VACCINES (1 of 3 - 19+ 3-dose series) 2014 CERVICAL CANCER SCREENING 02/27/2016 PAP SMEAR 02/27/2016 PAP SMEAR 02/27/2016 INFLUENZA VACCINE (#1) 2024 COVID-19 Vaccine (3 - 2023-2 5 season) 2024 08/30/2021, 08/08/2021 Preventative Visit- Commercial 11/12/2024 HPV/Cotest 2025 HPV VACCINES Aged Out No longer eligi ble based on patient's age to complete this topic Procedures Procedure Name Priority Date/Time Associated Diagnosis Comments US BIOPHYSICAL PROF W NST Routine 01/26/2025 11:26 AM CDT IUGR (intrauterine growth restriction) affecting care of mother, unspecified trimester, other fetus US OB LTD+UMB ART DOPPLER Routine 01/26/2025 [...] US MONITORING NST Routine 01/12/2025 9:25 AM CYANIDE FURNACE OPERATOR IUGR (intrauterine growth restriction) affecting care of mother, unspecified trimester, other fetus US OB LTD+UMB ART DOPPLER Routine 01/12/2025 8:47 AM CYANIDE FURNACE OPERATOR IUGR (intrauterine growth restriction) affecting care of mother, unspecified trimester, other fetus US OB FOLLOW UP + UMB ART Routine 01/05/2025 8:37 AM CYANIDE FURNACE OPERATOR IUGR (intrauterine growth restriction) affecting care of mother, third trimester, fetus 1 ECHO 2D + COLOR FLOW VELOCITY Routine 12/18/2024 9:49 AM CYANIDE FURNACE OPERATOR Family history of congenital heart defect screening for malformation using ultrasonics US OB FOLLOW UP PER FETUS Routine 12/18/2024 9:49 AM CYANIDE FURNACE OPERATOR Family history of congenital heart defect screening for malformation using ultrasonics US OB DETAIL SINGLE GEST Routine 11/20/2024 5:00 PM CYANIDE FURNACE OPERATOR Family history of congenital heart defect screening for malformation using ultrasonics from Last 3 Months Results * US BIOPHYSICAL PROF W PILOT (01/26/2025 11:26 AM CDT) Anatomical Region Laterality Modality Pelvis Ultrasound 01/26/2025 8:46 AM CDT Narrative 01/26/2025 9:26 AM CDT BPP WITH DIANA STUDY ----- Pat. Name: ROXANA NANCE Study Date: 01/26/2025 8:46am Pat. NO: [id number] Referring MD: TAMERA GIVENS MD Site: [facility] [employer] Supervisor: : 1995 Age: 29 ----- INDICATION ----- [...] for (suspected) hereditary disease in fetus Procedures 89937: Limited 1 or more - MARILU, R, position 12632: biophysical profile; with non-stress testing HISTORY ----- OB History 2. Para 1 MATERNAL ASSESSMENT ----- Physical Exam Weight 67 kg. BMI 28.90 kg/m . Blood pressure 148/103 mmHg. Heart rate 88 bpm Blood Pressure Profile: Right arm: # 1 149/100 mmHg, MAP 116.3 mmHg Repeat METHOD ----- EFM. Transabdominal ultrasound examination. View: Good view ----- Hill . Number of fetuses: 1 DATING ----- GA by prior assessment 30 w + 3 d CORNELL by prior assessment: 04/03/2025 Method of dating: Restore dating from previous exam Assigned: based on stated CORNELL, selected on 11/20/2024 Assigned GA 30 w + 3 d Assigned CORNELL: 04/03/2025 GENERAL EVALUATION ----- Cardiac activity present. Presentation: cephalic NON STRESS TEST ----- NST interpretation: non-reactive. Test duration 40 min. Baseline FHR 135 bpm. Accelerations: Not Present. Decelerations: Not present. Uterine activity: absent AMNIOTIC FLUID ASSESSMENT ----- Amount of AF: normal amount MVP 3.9 cm. MARILU 10.7 cm. Q1 3.9 cm, Q2 2.1 cm, Q3 2.5 cm, Q4 2.2 cm BIOPHYSICAL PROFILE ----- 2: breathing movements 2: Gross body movements 2: tone 2: Amniotic fluid volume NST: non-reactive /10 Biophysical profile score COMMENT ----- Nursing notes: Patient reports positive movement and no bleeding, leaking or paramjit. MFM specialist, Dr. Tapia reviewed findings. BPP ordered. BPP 8/10. Patient is headed to [facility] for prolonged monitoring and blood work for elevated pressures. Patient verbalized understanding and all questions were answered. Patient scheduled once weekly. IMPRESSION ----- testing @ 30w 3d for preeclampsia without severe features and FGR. -The NST is non-reactive but with one variable noted. -Amniotic fluid indices are within normal limits. - The BPP is 8/10 The patient had elevated BP during the testing. She was sent to triage for preeclampsia evaluation and prolonged monitoring for 1 hour. Thank you for allowing us to participate in the care of your patient. Procedure Note Sarita Tapia MD - 01/26/2025 BPP WITH NST STUDY ----- Pat. Name:Vidal NANCE Date:01/26/2025 8:46am Pat. NO: [id number] :TAMERA GIVENS MD [place] :1995Age:29 ----- INDICATION ----- Family [...] care for (suspected) hereditarydisease in fetus Procedures 94116: Limited 1 or more - [facility], position 68298: biophysical profile; with non-stresstesting HISTORY ----- OB History 2. Para 1 MATERNAL ASSESSMENT ----- Physical Exam Weight 67 kg. BMI 28.90 kg/m . Blood ndmbxkby911/103 mmHg. Heart rate 88 bpm Blood Pressure Profile: Right arm: # 1 149/100 mmHg, MAP 116.3 mmHg Repeat METHOD ----- EFM. Transabdominal ultrasound examination. View: Good view ----- Hill . Number of fetuses: 1 DATING ----- GA by prior [id number] w + 3 d CORNELL by prior assessment:04/03/2025 Method of dating:Restore dating from previous exam Assigned:based on stated CORNELL, selected on 11/20/2024 Assigned GA30 w + 3 d Assigned CORNELL:04/03/2025 GENERAL EVALUATION ----- Cardiac activity present. Presentation: cephalic NON STRESS TEST ----- NST interpretation: non-reactive. Test duration 40 min. Baseline FHR 135bpm. Accelerations: Not Present. Decelerations: Not present. Uterine activity: absent AMNIOTIC FLUID ASSESSMENT ----- Amount of AF: normal amount MVP 3.9 cm. MARILU 10.7 cm. Q1 3.9 cm, Q2 2.1 cm, Q3 2.5 cm, Q4 2.2 cm BIOPHYSICAL PROFILE ----- 2: breathing movements 2: Gross body movements 2: tone 2: Amniotic fluid volume NST: non-reactive 06/21 Biophysical profile score COMMENT ----- Nursing notes: Patient reports positive movement and no bleeding,leaking or paramjit. [facility] specialist, Dr. Tapia reviewed findings. BPP ordered. BPP 8/10. Patient is headed to [facility] for prolonged monitoring and blood work for elevated pressures. Patient verbalized understanding and all questionswere answered. Patient scheduled once weekly. IMPRESSION ----- testing @ 30w 3d for preeclampsia without [...] participate in the care of your patient. us Sarita Tapia MD US ORDERABLES Final Result * US OB LTD+UMB ART DOPPLER (01/26/2025 8:42 AM CDT) Only the most recent of2 resultswithin the time period is included. Anatomical Region Laterality Modality Pelvis Ultrasound 01/26/2025 8:11 AM CDT Narrative 01/26/2025 9:22 AM CDT STL LIMITED ----- Pat. Name: ROXANA NANCE Study Date: 01/26/2025 8:11am Pat. NO: [id number] Referring MD: TAMERA GIVENS MD Site: [facility] [employer] Supervisor: Misti Steele RDMS : 1995 Age: 29 [...] for (suspected) hereditary disease in fetus Procedures 99632: Ultrasound, uterus, real time with image documentation, limited one or more fetuses 15945: Doppler velocimetry, ; umbilical artery 46462: Doppler velocimetry, ; middle cerebral artery 23562: Doppler echocardiography, , pulsed wave and/or continuous [...] Betsy Mid Cerebral Artery: PI 1.44 6% Edith RI 0.74 25% [facility] PS 37.89 cm/s PS 0.92 MoM ED [...] and date of were verified by the retail specialist prior to the exam. IMPRESSION ----- Hill [...] Pat. Name:Vidal NANCE Date:01/26/2025 8:11am Pat. NO: [id number] MD:TAMERA GIVENS MD [facility]Misti Steele RDMS :1995Age:29 ----- INDICATION ----- Family [...] care for (suspected) hereditarydisease in fetus Procedures 73301: Ultrasound, uterus, real time withimage documentation, limited one or more fetuses 85199: Doppler velocimetry, ; umbilicalartery 42614: Doppler velocimetry, ; middle cerebralartery 25595: Doppler echocardiography, , pulsedwave and/or continuous wave with spectral display; follow-up or repeat study HISTORY ----- OB History 2. Para 1 METHOD ----- Transabdominal ultrasound examination ----- Hill . Number of fetuses: 1 DATING ----- GA by prior [id number] w + 3 d CORNELL by prior [...] and date of were verified by the retail specialist prior tothe exam. IMPRESSION ----- Hill @ [...] AM CDT Narrative 01/19/2025 10:00 AM CDT [facility] NST ----- Pat. Name: ROXANA NANCE Study Date: 01/19/2025 8:43am Pat. NO: [id number] Referring MD: TAMERA GIVENS MD Site: [facility] [employer] Supervisor: : 1995 Age: 29 ----- INDICATION ----- [...] for (suspected) hereditary disease in fetus Procedures 88235: NST/ monitoring HISTORY ----- OB History 2. [...] movement with no bleeding, leaking or paramjit. M specialist, Dr. Tapia reviewed findings. Dr. Tapia recommends weekly labs drawn for patient for GHTN. I spoke with SAL Burgos from Dr. Givens's office. Patient scheduled once weekly. IMPRESSION ----- Reactive for gestational age. Patient is overdue for preeclampsia labs; office called and advised to order labs. Thank you for allowing us to participate in the care of this patient. Procedure Note Sarita Tapia MD - 01/19/2025 TANJA NST ----- Pat. Name:Vidal NANCE Date:01/19/2025 8:43am Pat. NO: [id number] MD:TAMERA GIVENS MD [facility]1995Age:29 ----- INDICATION ----- Family History of [...] care for (suspected) hereditarydisease in fetus Procedures 73246: NST/ monitoring HISTORY ----- OB History 2. Para 1 MATERNAL ASSESSMENT ----- Physical Exam Weight 65 kg. BMI 28.12 kg/m . Blood quiiwjnz816/97 mmHg. Heart rate 73 bpm Blood Pressure Profile: Right arm: # 1 138/97 mmHg, MAP 110.7 mmHg Repeat METHOD ----- EFM ----- Hill . Number of fetuses: 1 DATING ----- GA by prior fnlxvemxak23 w + 3 d CORNELL by prior [...] Tapia recommends weekly labs drawn for patient forGHTN. I spoke with SAL Burgos from Dr. Givens's office. Patient scheduled once weekly. IMPRESSION ----- Reactive for gestational age. Patient is overdue for preeclampsia labs; office called and advised toorder labs. Thank you for allowing us to [...] NANCE Study Date: 01/19/2025 7:17am Pat. NO: [id number] Referring MD: TAMERA GIVENS MD Site: [facility] [employer] Supervisor: Misti Steele RDMS : 1995 Age: 29 [...] cord complications O14.03: Mild to moderate pre-eclampsia O36.7009: Maternal care for other known or suspected poor growth Procedures 70422: Ultrasound, uterus, real time with image documentation, follow up, transabdominal approach per fetus 16712: Doppler velocimetry, ; umbilical artery 64879: Doppler velocimetry, ; middle cerebral artery HISTORY [...] 1 lb 14 oz EFW by Hadlock ([id number]) Head / Face / Neck Biometry: Siebel Consultant 3.5 mm Extremities / Bony Struc Biometry: [...] and date of were verified by the retail specialist prior to the exam IMPRESSION ----- 1. [...] - 01/19/2025 STL FOLLOW UP ----- Pat. Name:Vidal NANCE Date:01/19/2025 7:17am Pat. NO: [id number] MD:TAMERA GIVENS MD [facility]Misti Steele RDMS :1995Age:29 ----- INDICATION ----- Family [...] for other known orsuspected poor growth Procedures 84307: Ultrasound, uterus, real time withimage documentation, follow up, transabdominal approach per fetus 96097: Doppler velocimetry, ; umbilicalartery 41496: Doppler velocimetry, ; middle cerebralartery HISTORY ----- OB History 2. Para 1 METHOD ----- Transabdominal ultrasound examination ----- Hill . Number of fetuses: 1 DATING ----- GA by prior eprknemaen86 w + 3 d CORNELL by prior [...] 1 lb 14 oz EFW by Hadlock ([id number]) Head / Face / Neck Biometry: Siebel Consultant 3.5mm Extremities / Bony Struc Biometry: FL [...] and date of were verified by the retail specialist prior tothe exam IMPRESSION ----- 1. Hill [...] + COLOR FLOW VELOCITY (12/18/2024 9:49 AM CYANIDE FURNACE OPERATOR) Narrative 12/18/2024 9:49 AM CYANIDE FURNACE OPERATOR Order information only. Exam was auto-finalized. us Irwin Fontaine MD US ORDERABLES Final Re sult * US OB FOLLOW UP PER FETUS (12/18/2024 9:49 AM CYANIDE FURNACE OPERATOR) Anatomical Region Laterality Modality Pelvis Ultrasound 12/18/2024 8:33 AM CYANIDE FURNACE OPERATOR Narrative 12/18/2024 10:04 AM CYANIDE FURNACE OPERATOR STL FOLLOW UP ----- Pat. Name: ROXANA NANCE Study Date: 12/18/2024 8:33am Pat. NO: [id number] Referring MD: TAMERA GIVENS MD Site: [facility] [employer] Supervisor: Anna Vivar RDMS : 1995 Age: 29 ----- INDICATION ----- Family History of Congenital Heart Defect, Suspected in Fetus Screening Follow-Up Marginal Cord Insertion CODING ----- Diagnoses O35.2XX0: Maternal care for (suspected) hereditary disease in fetus Z3A.24: Weeks of gestation Z36.2: Encounter for other screening follow-up O69.89X0: Labor and delivery complicated by other cord complications Procedures 94986: Ultrasound, uterus, real time with image documentation, follow up, transabdominal approach per fetus 22352: Echocardiography, , cardiovascular system, real time with image documentation (2D), with or without M-mode recording 40003: Doppler echocardiography color flow velocity mapping 98804: Doppler echocardiography, , cardiovascular system, pulsed wave and/or continuous wave with spectral display; complete 95759: Umbilical Artery Doppler HISTORY ----- OB History [...] 1 lb 4 oz EFW by Hadlock ([id number]) Head / Face / Neck Biometry: Siebel Consultant 4.9 mm Thorax / Lungs Biometry: Thoracic [...] normal RVOT view normal 3-vessel view normal 2-dqboxb-uhgpmde view normal High short axis view normal [...] PA main 5.2 mm 0.72 1.14 0.27 Bond Ductus art. 3.0 mm 0.19 0.41 -0.10 Bond Rt PA branch 2.0 mm -1.01 -0.76 -1.41 Bond Lt PA branch 2.3 mm 0.25 0.49 -0.18 Bond Ao asc 3.7 mm -0.70 -0.38 -1.20 Varun Ao isthmus 2.8 mm 0.62 0.35 -0.46 0.75 Ziyad Ao desc 3.7 mm 0.66 0.92 0.01 Varun IVC 3.3 mm 1.30 1.53 0.91 Bond Cardiac Doppler: Tricuspid Valve: E-wave 31.08 cm/s [...] view. RVOT view. LVOT view. 3-vessel view. 4-ckwuqn-xqjyesl view. Diaphragm. Abdomen Stomach. Kidneys. Bladder. GROWTH OVERVIEW ----- Exam date GA BPD (mm) HC (mm) AC (mm) FL (mm) HL (mm) EFW (g) 11/20/2024 20w 6d 48.5 41% 178.5 19% 155.5 39% 31.4 10% 29.6 11% 344 19% 12/18/2024 24w 6d 55.2 1% 211.2 1% 185.1 6% 39.5 1% 558 2% COMMENT ----- Patient's name and date of were verified by the retail specialist prior to the exam IMPRESSION ----- -Single [...] Pat. Name:Vidal NANCE Date:12/18/2024 8:33am Pat. NO: [id number] MD:TAMERA GIVENS MD [facility]Anna Vivar RDMS :1995Age:29 ----- INDICATION ----- Family History of Congenital Heart Defect, Suspected in Fetus Screening Follow-Up Marginal Cord Insertion CODING ----- Diagnoses O35.2XX0: Maternal care for (suspected) hereditarydisease in fetus Z3A.24: Weeks of gestation Z36.2: Encounter for other screeningfollow-up O69.89X0: Labor and delivery complicated by othercord complications Procedures 90308: Ultrasound, uterus, real time withimage documentation, follow up, transabdominal approach per fetus 25803: Echocardiography, , cardiovascularsystem, real time with image documentation (2D), with or without M-mode recording 72101: Doppler echocardiography color flowvelocity mapping 75217: Doppler echocardiography, ,cardiovascular system, pulsed wave and/or continuous wave with spectral display; complete 26802: Umbilical Artery Doppler HISTORY ----- OB History 2. Para 1 METHOD ----- Transabdominal ultrasound examination ----- Hill . Number of fetuses: 1 DATING ----- GA by prior imdltkcxce01 w + 6 d CORNELL by prior [...] 1 lb 4 oz EFW by Hadlock ([id number]) Head / Face / Neck Biometry: Siebel Consultant 4.9mm Thorax / Lungs Biometry: Thoracic circ [...] normal RVOT view normal 3-vessel view normal 8-pmtnol-ytsmhkh view normal High short axis view normal [...] 4-chamber view. RVOT view. LVOT view. 3-vesselview. 8-ygvnah-umywaad view. Diaphragm. Abdomen Stomach. Kidneys. Bladder. GROWTH OVERVIEW ----- Exam date GA BPD (mm) HC (mm) AC (mm) FL(mm) HL (mm) EFW (g) 11/20/2024 20w 6d 48.5 41% 178.5 19% 155.5 39%31.4 10% 29.6 11% 344 19% 12/18/2024 24w 6d 55.2 1% 211.2 1% 185.1 6%39.5 1% 558 2% COMMENT ----- Patient's name and date of were verified by the retail specialist prior tothe exam IMPRESSION ----- -Single living [...] OB DETAIL SINGLE GEST (11/20/2024 5:00 PM CYANIDE FURNACE OPERATOR) Anatomical Region Laterality Modality Pelvis Ultrasound 11/20/2024 2:02 PM CYANIDE FURNACE OPERATOR Narrative 11/20/2024 3:42 PM CYANIDE FURNACE OPERATOR STL COMP ----- Pat. Name: ROXANA NANCE Study Date: 11/20/2024 2:02pm Pat. NO: [id number] Referring MD: TAMERA GIVENS MD Site: [facility] [employer] Supervisor: Chikis Monique RDMS : 1995 Age: 29 ----- INDICATION ----- Anatomy Survey no genetics Family History of Congenital Heart Defect, G1 VSD, transposition, situs inversus Suspected in Fetus CODING ----- Diagnoses Z3A.20: Weeks of gestation O35.2XX0: Maternal care for (suspected) hereditary disease in fetus Z36.3: Encounter for screening for malformations Procedures 03717: Ultrasound, uterus, real time with image documentation, [...] 0 lb 12 oz EFW by Hadlock ([id number]) Head / Face / Neck Biometry: Siebel Consultant 5.4 mm CM 6.3 mm 81% Nicolaides [...] view. RVOT view. LVOT view. 3-vessel view. 5-wwijaj-dcgjisn view. Situs. Aortic arch view. Ductal arch [...] and date of were verified by the retail specialist before the exam IMPRESSION ----- Viable at [...] opportunity to come to the center at No Name for [id number]-qp-cafh consult which she declined. Limitations of ultrasound [...] Pat. Name:Vidal NANCE Date:11/20/2024 2:02pm Pat. NO: [id number] MD:TAMERA GIVENS MD [facility]Chikis Monique RDMS :1995Age:29 ----- INDICATION ----- Anatomy Survey no genetics Family History of Congenital Heart Defect, G1 VSD,transposition, situs inversus Suspected in Fetus CODING ----- Diagnoses Z3A.20: Weeks of gestation O35.2XX0: Maternal care for (suspected) hereditarydisease in fetus Z36.3: Encounter for screening formalformations Procedures 99210: Ultrasound, uterus, real time withimage documentation, and maternal evaluation plus detailed anatomic examination,transabdominal approach HISTORY ----- OB History 2. Para 1 MATERNAL ASSESSMENT ----- Physical Exam Weight 65 kg. BMI 28.12 kg/m METHOD ----- Transabdominal ultrasound examination ----- Hill . Number of fetuses: 1 DATING ----- Method of dating:based on stated CORNELL GA by prior [id number] w + 6 d CORNELL by prior [...] 0 lb 12 oz EFW by Hadlock ([id number]) Head / Face / Neck Biometry: Siebel Consultant 5.4 mm CM 6.3 mm 81%Nicolaides Inner [...] 4-chamber view. RVOT view. LVOT view. 3-vesselview. 9-tiqecf-subauwv view. Situs. Aortic arch view. Ductal arch [...] and date of were verified by the retail specialist beforethe exam IMPRESSION ----- Viable at 20 [...] opportunity to come to the center at No Name for fjkb-yg-vzyj consult which she declined.Limitations of ultrasound were [...] and/or early deliveryare not indicated us Tamera Givens MD US ORDERABLES Final Res ult from Last 3 Months Insurance BLUE ACCESS/TRUE BLUE PPO
--- NOTE | 2025-01-31 11:47 | PC.NURSE ---
Dr. Kiera Ocasio informed of this pt of Dr. Givens's with EDC 04/05 here with elevated BPs and her 65 # dog jumpedon her abdomen while she was reclining on the couch. This is the pt that called him last night with elevated BP's and he had her take an extra 100 mg of Labetalol then , but to resume normal dose this am but come in to hospital if elevated this am. Pt denies headache, has spots in vision intermittently throughout the day, no epigastric/RUQ pain. No edema. DTR's 2+ and no clonus. Order received to give another dose of Labetalol now and PIH labs except no urine since pt has already ruled in for preeclampsia.
[2025-01-31] MEDS: LABETALOL HCL 100 MG TABLET PO (12:02)
--- NOTE | 2025-01-31 12:27 | OBADM ---
This patient, Sunshine Nance, admitted to the OB room 116 for observation. Patient/family oriented to hospital policies and general routines including ID bracelet, bed and alarms, visiting hours, pain management, procedures, bathroom and other care routines, personal items, smoking policy, room service/diet, and visiting hours. Patient/Family are encouraged to report perceived risks to care and to ask questions if they do not understand what they are told or what they should do.
[2025-01-31 12:31] LABS: Basophils Percent Auto 0.5 % (0.2-1.2); Eosinophils Absolute Auto 0.2 K/mm3 (0-0.3); Eosinophils Percent Auto 2.5 % (0-4.4); Hematocrit 38.1 % (37.0-47.0); Hemoglobin 12.8 g/dL (12.0-15.0); Immature Granulocyte Absolute 0.05 K/mm3 (0.00-0.031); Immature Granulocyte Percent A 0.6 % (0-0.5); Lymphocytes Absolute Auto 3.01 K/mm3 (0.9-3.2); Lymphocytes Percent Auto 35.5 % (18.3-44.2); Mean Corpuscular HGB Conc 33.6 g/dl (32-36); Mean Corpuscular Hemoglobin 30.6 pg (26-34); Mean Corpuscular Volume 91.1 fl (80-100); Mean Platelet Volume 10.7 fl (7.4-10.4); Monocytes Absolute Auto 0.6 K/mm3 (0.1-0.6); Monocytes Percent Auto 6.5 % (2.6-8.5); Neutrophils Absolute Auto 4.6 K/mm3 (1.3-6.7); Neutrophils Percent Auto 54.4 % (45.5-73.1); Platelet Count Result 181 k/mm3 (150-375); Red Blood Count 4.18 M/mm3 (4.2-5.4); Red Cell Distribution Width 13.1 % (11.5-14.5); White Blood Count 8.5 K/mm3 (4.5-10.0)
[2025-01-31 12:41] LABS: Alanine Aminotransferase 40 U/L (6-35); Albumin Level 3.1 g/dL (3.5-5.1); Alkaline Phosphatase 155 U/L (38-126); Anion Gap 6 mmol/L (4-12); Aspartate Amino Transferase 40 U/L (14-36); Bilirubin,Total 0.6 mg/dL (0.2-1.3); Blood Urea Nitrogen 16 mg/dL (7-17); Calcium 8.6 mg/dL (8.4-10.2); Carbon Dioxide 23 mmol/L (22-30); Chloride 107 mmol/L (98-107); Estimated Glomerular Filt Rate > 60; Glucose 89 mg/dL (65-110); Potassium 4.4 mmol/L (3.4-5.0); Sodium 136 mmol/L (137-145); Uric Acid 6.2 mg/dL (2.5-7.5)
--- NOTE | 2025-01-31 13:06 | PC.NURSE ---
Dr. Kiera Ocasio returned page and updated on BP's, lab results including increase in ALT and AST, pt hx of IUGR with EFW in < 1st percentile. Baby has had 2 variable decels now- one down to 60's that I turned the pt for and FHT's promptly came up and a 2nd variable down to 80's. Pt states her fluid level on her U/S Sunday was normal. Order received for [facility] and MD will come in to transfer patient.
[2025-01-31] MEDS: BETAMETHASONE SOD PHOS/ACETATE 30 MG/5 ML VIAL 12 MG IM (13:24)
--- NOTE | 2025-01-31 13:27 | PC.NURSE ---
Dr. Kiera Ocasio on unit and informed of severe BP's again. Order received for IV Labetalol and Magnesium sulfate.
--- NOTE | 2025-01-31 13:28 | P.HP_ITS ---
H&P: HPI History of Present Illness Date/Time: 01/31/25 13:28 Chief Complaint: Elevated blood pressures Narrative: Is a 29-year-old 2 para 1 whose last delivery was 12 years ago in an EDC of 04/05/2025 at 30 at 6 7 weeks gestation complains of elevated blood pressures. The noted be elevated here and she is ruled in preeclamptic with a 24hour urine over 350. She had been on 100mg b.i.d. of labetalol here her liver enzymes are elevated and she has severe pressures. An ultrasound of 2 weeks ago showed the baby to be in the 1st percentile Review of Systems Review of Systems: All systems reviewed & are unremarkable except as noted in HPI and below Constitutional: Constitutional: Reports no additional constitutional complaints, Denies chills and Denies fever(s) Eyes: Eyes: Reports no additional eye complaints ENT: Reports system reviewed and no additional complaints, except as documented Cardiovascular: Cardiovascular: Reports no additional cardiovascular complaints, Denies chest pain and Denies dyspnea Respiratory: Respiratory: Reports no additional respiratory complaints, Denies cough and Denies dyspnea Gastrointestinal: Gastrointestinal: Reports no additional gastrointestinal complaints, Denies abdominal pain, Denies nausea and Denies vomiting Musculoskeletal: Musculoskeletal: Reports no additional musculoskeletal complaints Integumentary/Breasts: Skin/Breast: Reports as per HPI Comments: 2 cm laceration right index finger Neurologic: Reports system reviewed and no additional complaints, except as documented Psychiatric: Psychiatric: Reports no additional psychiatric complaints Allergic/Immunologic: Allergic/Immunologic: Reports no additional allergic/immunologic complaints PMF Past Medical History Medical History GERD (gastroesophageal reflux disease) Food impaction of esophagus Dysphagia Patient denies significant medical history Surgical History Surgical History History of tonsillectomy Family History Family History Father No problems noted. Mother Hypertension Social History Social History Smoking status: Never smoker Alcohol intake: current Drinks per week: 4 Substance use: never Substance use type: does not use Lack of Transportation: No Lack of Food: Never True Current Housing: I Have Housing Concerned About Future Housing: No Difficulty Paying Gas/Electric Bills: No Difficulty Paying for Meds: No Currently Unemployed: No Education: Associate Degree Difficulty w/ Childcare or Family Care: No Living arrangements: with family Occupation/Education: occupation Gender identity (if verbalized by the patient): Female Sexual Orientation (if Verbalized by the Patient): Straight or Heterosexual Spiritual care concerns: No Meds Home Medications and Allergies Home Medications ?Medication ?Instructions ?Recorded ?Confirmed ?Type levonorgestrel (Mirena) See Rx Instructions .Route .COMPLEX 07/13/22 07/13/22 History aspirin 81 mg capsule 81 mg PO DAILY pre-e prophylaxis 01/08/25 01/08/25 History labetalol 100 mg tablet 100 mg PO Q12H #60 tabs 01/26/25 Rx Allergies Allergy/AdvReac Type Severity Reaction Status Date / Time No Known Allergies Allergy Unknown Verified 01/08/25 08:57 Vital Signs Vital Signs - 24 hr 01/31/25 11:42 01/31/25 11:47 01/31/25 11:52 Pulse Rate 88 Blood Pressure 165/111 H Blood Pressure [Left Arm] Pulse Oximetry 95 95 98 Oxygen Delivery 01/31/25 11:57 01/31/25 12:00 01/31/25 12:02 Pulse Rate 84 Blood Pressure 161/111 H Blood Pressure [Left Arm] Pulse Oximetry 97 98 Oxygen Delivery 01/31/25 12:02 01/31/25 12:06 01/31/25 12:06 Pulse Rate 81 81 Blood Pressure Blood Pressure [Left Arm] 161/111 H Pulse Oximetry Oxygen Delivery Room Air 01/31/25 12:07 01/31/25 12:12 01/31/25 12:17 Pulse Rate Blood Pressure Blood Pressure [Left Arm] Pulse Oximetry 99 100 99 Oxygen Delivery 01/31/25 12:22 01/31/25 12:27 01/31/25 12:30 Pulse Rate 80 Blood Pressure 150/106 H Blood Pressure [Left Arm] Pulse Oximetry 96 95 Oxygen Delivery 01/31/25 12:32 01/31/25 12:37 01/31/25 12:42 Pulse Rate Blood Pressure Blood Pressure [Left Arm] Pulse Oximetry 95 94 95 Oxygen Delivery 01/31/25 12:46 01/31/25 12:47 01/31/25 12:52 Pulse Rate 78 Blood Pressure 149/105 H Blood Pressure [Left Arm] Pulse Oximetry 96 95 Oxygen Delivery 01/31/25 12:57 01/31/25 13:00 01/31/25 13:02 Pulse Rate 78 Blood Pressure 156/107 H Blood Pressure [Left Arm] Pulse Oximetry 95 96 Oxygen Delivery 01/31/25 13:07 01/31/25 13:12 01/31/25 13:15 Pulse Rate 82 Blood Pressure 169/110 H Blood Pressure [Left Arm] Pulse Oximetry 96 96 Oxygen Delivery 01/31/25 13:17 01/31/25 13:20 01/31/25 13:22 Pulse Rate 78 Blood Pressure 166/106 H Blood Pressure [Left Arm] Pulse Oximetry 95 97 Oxygen Delivery 01/31/25 13:27 Pulse Rate Blood Pressure Blood Pressure [Left Arm] Pulse Oximetry 96 Oxygen Delivery Exam Const: General: cooperative, healthy appearing and comfortable Nutritional Appearance: average body habitus Orientation/consciousness: oriented to person, oriented to place and oriented to time Resp: Effort & Inspection: normal respiratory effort Cardio: Rate: regular rate Rhythm: regular rhythm Heart sounds: S1 normal heart sound present and S2 normal heart sound present GI: Inspection: normal to inspection (Gravid soft uterus) : External Female Exam: normal external appearance Speculum Exam - Vagina: normal appearance of the vagina H&P: Results Labs Labs: Short CBC 01/31/25 Range/Units 12:24 WBC 8.5 (4.5-10.0) K/mm3 Hgb 12.8 (12.0-15.0) g/dL Hct 38.1 (37.0-47.0) % Plt Count 181 (150-375) k/mm3 [facility] 01/31/25 12:24 Sodium 136 L Potassium 4.4 Chloride 107 Carbon Dioxide 23 BUN 16 Creatinine 0.69 L Glucose 89 Calcium 8.6 Liver Function 01/31/25 Range/Units 12:24 Total Bilirubin 0.6 (0.2-1.3) mg/dL AST 40 H (14-36) U/L ALT 40 H (6-35) U/L Alkaline Phosphatase 155 H (38-126) U/L Albumin 3.1 L (3.5-5.1) g/dL Assessment and Plan Assessment and plan (1) Preeclampsia: Code(s): O14.90 - Unspecified pre-eclampsia, unspecified trimester Status: Acute Plan IV labetalol being given. Magnesium was started. Steroids are given. Patient requires transfer to tertiary care center
--- NOTE | 2025-01-31 13:35 | PC.NURSE ---
Dr. Kiera Ocasio in to talk to pt about plan of care and to transfer pt. Pt agreeable. Pt off monitor to void.
--- NOTE | 2025-01-31 13:39 | PC.NURSE ---
Dr. Kiera Ocasio spoke to [facility] who will accept pt as a transfer- transport team will come crop picker pt.
--- NOTE | 2025-01-31 13:43 | P.DS_ITS ---
DS: Admitting Diagnosis Discharge Date 01/31/2025 Admitting Diagnosis Preeclampsia DS: Discharge Diagnosis Discharge Diagnosis (1) Preeclampsia: Code(s): O14.90 - Unspecified pre-eclampsia, unspecified trimester Status: Acute DS: Summary Hospital Course Reason for hospitalization: Patient was admitted just short of 31 weeks gestation with -induced hypertension and intrauterine growth restriction. Hospital Course: Patient was treated with steroids and IV labetalol. Magnesium was started the patient was transferred to [facility] tertiary care Time Spent with Patient Time attestation: Total time spent providing and/or coordinating discharge services: Exam Const: General: cooperative, healthy appearing and comfortable Nutritional Appearance: average body habitus Orientation/consciousness: oriented to person, oriented to place and oriented to time HENMT: Head: normal to inspection Resp: Effort & Inspection: normal respiratory effort Cardio: Rate: regular rate Rhythm: regular rhythm Heart sounds: S1 normal heart sound present and S2 normal heart sound present GI: Inspection: normal to inspection (Gravid soft uterus) : External Female Exam: normal external appearance Speculum Exam - Vagina: normal appearance of the vagina Speculum Exam - Cervix: normal appearance of the cervix DS: Data Data Completed and Pending Labs on day of discharge: Labs from last 24 hours 01/31/25 12:24 WBC 8.5 RBC 4.18 L Hgb 12.8 Hct 38.1 MCV 91.1 MCH 30.6 MCHC 33.6 RDW 13.1 Plt Count 181 MPV 10.7 H Immature Gran % (Auto) 0.6 H Neut % (Auto) 54.4 Lymph % (Auto) 35.5 [place] % (Auto) 6.5 Eos % (Auto) 2.5 Baso % (Auto) 0.5 Lymph # (Auto) 3.01 [place] # (Auto) 0.6 Eos # (Auto) 0.2 Baso # (Auto) 0.0 Abs Immat Gran (auto) 0.05 H Absolute Neuts (auto) 4.6 Absolute Nucleated RBC 0.000 Nucleated RBC % 0.0 Sodium 136 L Potassium 4.4 Chloride 107 Carbon Dioxide 23 Anion Gap 6 BUN 16 Creatinine 0.69 L Estim Creat Clear Calc Not Reportable Estimated GFR > 60 Glucose 89 Uric Acid 6.2 Calcium 8.6 Total Bilirubin 0.6 AST 40 H ALT 40 H Alkaline Phosphatase 155 H Total Protein 6.0 L Albumin 3.1 L Discharge Plan Discharge Attending physician on discharge: Irwin Garza Discharging Clinician: Irwin Garza Activity: no straining and pelvic rest Diet: other - see discharge instructions Patient Language: Azeri Discharge Medications: No Action Mirena 20 mcg/24 hours (7 yrs) 52 mg Intrauterine Device See Rx Instructions .ROUTE .COMPLEX Rx Instructions: 20 mcg intrauterinely labetalol 100 mg tablet 100 mg PO Q12H Qty: 60 0RF aspirin 81 mg capsule 81 mg PO DAILY Date of admission: 01/31/25 11:24 Primary Care Provider: Flaquito Knox Admitting Provider: Tamera Givens Attending physician on admission: Tamera Givens Condition: Guarded Prognosis
[2025-01-31] MEDS: LACTATED RINGERS 1,000 ML 75 ML IV CONT (13:44)
[2025-01-31] MEDS: LABETALOL HCL INJ 100 MG/20 ML VIAL 20 MG IV PUSH (13:47)
[2025-01-31] MEDS: MAGNESIUM SULF 4 GM/WATER100ML 4 GM/100 ML BAG IVPB (13:55)
[2025-01-31] MEDS: MAGNESIUM SULF 20GM/WATER500ML 500 ML 50 MG IV CONT (14:29)
--- NOTE | 2025-01-31 15:07 | PC.NURSE ---
Maternal transport team here.
== END 2025-01-31 15:21 | disposition short-term general hospital (02) ==
PROVIDERS: Admitting Provider Obstetrics & Gynecology; PCP Family Medicine; Visit Provider Obstetrics & Gynecology
DX: O14.93 Unspecified pre-eclampsia, third trimester (principal); O36.5930 Maternal care for other known or suspected poor fetal growth, third trimester, not applicable or unspecified; Z3A.31 31 weeks gestation of pregnancy
CPT/HCPCS: 36415; 80053; 84550; 85025; 96365; 96366; 96372; 96375; A9270; G0378; G0379; J0702; J3475; J7120

== ENCOUNTER 2025-06-22 22:57 | Emergency (ER) | payer BC, SELFPAY ==
[2025-06-22 22:59] VITALS: BP 121/87; PULSE 78; RESP 16; TEMP 36.3; O2SAT 98
--- OUTSIDE RECORDS SUMMARY | 2025-06-22 23:00 | XMS_ITS | Clinical Summary ---
Author Organization [facility] Address [address] [place] [address] Phone Care Team Providers Care Governor Assembler Name Role Phone Unavailable Primary Care Provider Unavailabl e Allergies No known active allergies Active Problems Problem Noted Date Diagnosed Date growth restriction antepartum 12/18/2024 Encounters Date Type Department Care Team Description 06/19/2025 12:58 PM CDT - 06/19/2025 3:29 PM CDT Emergency [facility] Emergency Medicine [address] [place] [id number] Bat bite wound (Primary Dx); Need for post exposure prophylaxis for rabies; Encounter for prophylactic administration of rabies immune globulin Discharge Disposition: Home or Self Care 06/19/2025 Travel 06/17/2025 External Device Data [facility] ABSTRACTION Provider, Abstract 06/16/2025 External Device Data [facility] [place]CTION Provider, Abstract 05/27/2025 External Device Data [facility]STRACTION Provider, Abstract 05/26/2025 External Device Data [place] Provider, Abstract 05/12/2025 External Device Data [facility]STRACTION Provider, Abstract from Last 3 Months Immunizations Immunization Administration Dates Next Due (HYPERRAB/IMOGAM-HT)(ALL AGE S) RABIES IMMUNE GLOBULIN, HUMAN (RIg) 300 UNIT/ML (PF)/(RIg-HT), 150 UNIT/ML, IM/SUBCUT 06/19/2025 (IMOVAX)(ALL AGES) RABIES VACCINE, DIPLOID, 1 ML , IM 06/19/2025 Social History Tobacco Use Types Packs/Day Years Used Date Smoking Tobacco: Never Assessed Comments Unknown Sex and Gender Information Value Date Recorded Sex Assigned at Not on file Legal 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 Gender Identity Not on file Sexual Orientation Not on file Last Filed Vital Signs Vital Sign Reading Time Taken Comments Blood Pressure 116/78 06/19/2025 12:08 PM CDT Pulse - - Temperature 36.6 C (97.9 F) 06/19/2025 12:08 PM CDT Respiratory Rate 16 06/19/2025 12:08 PM CDT Oxygen Saturation 97% 06/19/2025 12:08 PM CDT Inhaled Oxygen Concentration - - Weight 61.2 kg (135 lb) 06/19/2025 12:08 PM CDT Height 152.4 cm (5') 06/19/2025 12:08 PM CDT Body Mass Index 26.37 06/19/2025 12:08 PM CDT Plan of Treatment Health Maintenance Due Date Last Done Comments HPV VACCINES (1 - 3-dose series) 2010 DTAP/TDAP/TD VACCINES (1 - Tdap) 2014 HEPATITIS B VACCINES (1 of 3 - 19+ 3-dose series) 2014 HPV/Cotest (21-29) 02/27/2016 COVID-19 Vaccine ( - 2023- season) 2024, 08/08/2021 Preventative Visit- Commercial 11/12/2024 CERVICAL CANCER SCREENING 2025 HPV/Cotest (30-65) 2025 PAP SMEAR 2025 INFLUENZA VACCINE (#1) 2025 Insurance BCBS BLUE ACCESS/TRUE BLUE PPO
--- OUTSIDE RECORDS SUMMARY | 2025-06-22 23:00 | XMS_ITS | Clinical Summary ---
Author Organization [facility] Address [address] [address] Care Team Providers Care Overhead Distribution Engineer Name Role Phone Unavailable Primary Care Provider Unavailabl e Source Comments [facility],non-owned Affiliates and Associated Physician Practices is amultiple site organization consisting of ambulatory clinics and hospital sitesin [place], [place], [place] and [place]. This disclosure is being madepursuant to the Care Everywhere program and may not contain all information available regarding this patient. Last updated 18.[facility] Allergies No known active allergies Medications * Be aware that medications may not be up to date on this document. Alwaysverify current medications with the patient. docusate sodium (Colace) 100 MG capsule Take 1 (one) capsule by mouth once daily as needed for constipation 30 capsule 3 02/06/2025 3:30 PM CDT 5 Active ibuprofen (Motrin) 600 MG tablet Take 1 (one) tablet by mouth every 6 hours as needed for Pain 30 tablet 1 5 Active ferrous sulfate 325 (65 FE) MG tablet Take 1 (one) tablet by mouth once daily 30 tablet 1 5 Active polyethylene glycol 3350 (Miralax) 17 GM/SCOOP powder Mix and dissolve 1 capful (17 grams) in liquid and drink by mouth once daily as needed for constipation 510 g 1 02/06/2025 3:30 PM CDT 5 Active Vit-Fe Fumarate-FA (M- Plus) 27-1 MG TABS Take 1 tablet by mouth once daily 90 tablet 4 5 Active acetaminophen (Tylenol) 500 MG tablet Take 2 (two) tablets by mouth every 6 hours 60 tablet 5 Active naloxone HCl (Narcan) 4 MG/0.1ML nasal spray [place] 1 (one) spray into the nose as needed (May repeat every 2 min in alternating nostrils until emergency medical help arrives for overdose) Active oxyCODONE, immediate release, (Roxicodone) 5 MG tabletIndicatio ns:Status post delivery Take 1 (one) tablet by mouth every 6 hours as needed for Pain 12 tablet 02/06/2025 3:30 PM CDT Active NIFEdipine CR 24hr (Adalat CC) 30 MG tablet Take 1 (one) tablet by mouth once daily 30 tablet 2 02/06/2025 3:30 PM CDT 5 Active Active Problems Problem Noted Date Diagnosed Date Pre-eclampsia in third trimester 01/31/2025 Immunizations Immunization Administration Dates Next Due MMR 02/03/2025() Social History Tobacco Use Types Packs/Day Years Used Date Smoking Tobacco: Never Smokeless Tobacco: Never Tobacco Cessation:Counseling Given: Not Answered Alcohol Use Standard Drinks/Week Comments Not Currently 0 (1 standard drink = 0.6 oz pur e alcohol) Overall Financial Resource Strain (CARDIA) Answe r Date Recorded How hard is it for you to pa y for the very basics like food, housing, medical care, and heating? Not hard at all 01/31/2025 [facility] [place] of Occupat ional Health - Occupational Stress Questionnaire Answer Date Recorded Do you feel stress - tense, restless, nervous, or anxious, or unable to sleep at night because your mind is troubled all the time - these days? Not at all 01/31/2025 Hunger Vital Sign Answer Date Recorded Within the past 12 months, y ou worried that your food would run out before you got the money to buy more. Never true 02/01/20 25 Within the past 12 months, t he food you bought just didn't last and you didn't have money to get more. Never true 01/31/2025 PRAPARE - Transportation Answer Date Re corded In the past 12 months, has l ack of transportation kept you from medical appointments or from getting medications? No 01/11 In the past 12 months, has l ack of transportation kept you from meetings, work, or from getting things needed for daily living? No 01/31/2025 [place] Depression Scale Answer Date Recorded [place] Depression Scale Total 0 02/05/2025 The thought of harming myself has occurred to me . Never 02/05/2025 Housing Stability Vital Sign Answer Julio César e Recorded In the last 12 months, was t here a time when you were not able to pay the mortgage or rent on time? No 01/31/2025 In the past 12 months, how m any times have you moved where you were living? 0 01/31/2025 At any time in the past [address] [facility], were you homeless or living in a residential (including now)? No 01/31/2025 Comments No Sex and Gender Information Value Date Recorded Sex Assigned at Not on file Legal Sex Female 1:52 PM CDT Gender Identity Not on file Sexual Orientation Not on file Last Filed Vital Signs Vital Sign Reading Time Taken Comments Blood Pressure 137/96 02/06/2025 9:30 AM CDT Pulse 102 02/06/2025 9:30 AM CDT Temperature 36.4 C (97.6 F) 02/06/2025 9:30 AM CDT Respiratory Rate 18 02/06/2025 9:30 AM CDT Oxygen Saturation 99% 02/06/2025 9:30 AM CDT Inhaled Oxygen Concentration - - Weight 69.9 kg (154 lb) 01/31/2025 5:05 PM CDT Height 152.4 cm (5') 01/31/2025 5:05 PM CDT Body Mass Index 30.08 01/31/2025 5:05 PM CDT Plan of Treatment Health Maintenance Due Date Last Done Comments HIV SCREENING 2010 DTAP/TDAP/TD VACCINES (1 - Tdap) 2014 HEPATITIS B VACCINE (1 of 3 - 19+ 3-dose series) 2014 PAP SMEAR 02/27/2016 HPV VACCINE (1 - 3-dose SCDM series) 2022 COVID-19 VACCINE (2023-2 5 season) 2024 INFLUENZA VACCINE (#1) 2025 ZOSTER VACCINE (1 of 2) 2045 HEPATITIS C SCREENING Completed 02/01/2025 DEPRESSION SCREENING Completed 02/05/2025 HIB VACCINE Aged Out No longer eligi ble based on patient's age to complete this topic MENINGOCOCCAL (Group B) VACC INE SHARED DECISION-MAKING Aged Out No longer eligibl e based on patient's age to complete this topic MENINGOCOCCAL GROUPS A/C/Y/W VACCINE Aged Out No longer eligible b ased on patient's age to complete this topic PNEUMOCOCCAL VACCINE Aged Out No long er eligible based on patient's age to complete this topic Procedures Procedure Name Priority Date/Time Associated Diagnosis Comments HEPATITIS SCREEN ACUTE Routine 02/01/2025 10:39 AM CDT from Last 3 Months or Most Recently Relevant to Health Maintenance Results * HEPATITIS SCREEN ACUTE (02/01/2025 10:39 AM CDT) HAV Antibody IgM Non Reactive Non Reactive 02/01/2025 11:34 AM CDT [facility] HBsAg Non Reactive Non Reactive 02/01/2025 11:34 AM CDT [facility] HBc Antibody IgM Non Reactive Non Reactive 02/01/2025 11:34 AM CDT [facility] HCV Antibody Screen Non Reactive Non Reactive 02/01/2025 11:34 AM CDT [facility] Blood BLOOD SPECIMEN / Unknown Lab Venipuncture / Unknown 02/01/2025 10:39 AM CDT 02/01/2025 10:54 AM CDT Narrative [facility] - 02/01/2025 11:34 AM CDT Non Reactive - Antibodies to Hepatitis C virus (HCV) were not detected, result does not exclude early acute HCV infection. us Abbey Goss MD LAB - CHEMISTRY ORDERABLES Fin al Result [facility] [address] [place], [place] [id number] from Last 3 Months or Most Recently Relevant to Health Maintenance Insurance [employer] Advance Directives * Full Code (Latest Code Status on File) Date Activated Date Inactivated Comments 02/02/2025 12:47 PM 02/06/2025 12:32 PM * Full Code Date Activated Date Inactivated Comments 01/31/2025 4:31 PM 02/02/2025 12:47 PM
--- OUTSIDE RECORDS SUMMARY | 2025-06-23 00:15 | XMS_ITS | Clinical Summary ---
Author Organization [facility] Address [address] [place] [address] Care Team Providers Care Tube Lancer Name Role Phone Unavailable Primary Care Provider Unavailabl e Source Comments [facility],non-owned Affiliates and Associated Physician Practices is amultiple site organization consisting of ambulatory clinics and hospital sitesin [place], [place], [place] and [place]. This disclosure is being madepursuant to the Care Everywhere program and may not contain all information available regarding this patient. Last updated 18.[facility] Allergies No known active allergies Medications * [...] naloxone HCl (Narcan) 4 MG/0.1ML nasal spray [place] 1 (one) spray into the nose as [...] and heating? Not hard at all 01/31/2025 [facility] of Occupat ional Health - Occupational Stress [...] things needed for daily living? No 01/31/2025 [place] Depression Scale Answer Date Recorded [place] Depression Scale Total 0 02/05/2025 The thought [...] any time in the past 12 m [facility], were you homeless or living in a chcf (including now)? No 01/31/2025 Comments No Sex [...] Reactive Non Reactive 02/01/2025 11:34 AM CDT [facility] HBsAg Non Reactive Non Reactive 02/01/2025 11:34 AM CDT [facility] HBc Antibody IgM Non Reactive Non Reactive 02/01/2025 11:34 AM CDT [facility] HCV Antibody Screen Non Reactive Non Reactive 02/01/2025 11:34 AM CDT [facility] Blood BLOOD SPECIMEN / Unknown Lab Venipuncture / Unknown 02/01/2025 10:39 AM CDT 02/01/2025 10:54 AM CDT Narrative [facility] - 02/01/2025 11:34 AM CDT Non Reactive - Antibodies to Hepatitis C virus (HCV) were not detected, result does not exclude early acute HCV infection. us Abbey Goss MD LAB - CHEMISTRY ORDERABLES Fin al Result [facility] [address] [place], [place] [id number] from Last 3 Months or Most Recently Relevant to Health Maintenance Insurance [employer]IL[employer] Advance Directives * Full Code (Latest Code Status on File) Date Activated Date Inactivated Comments 02/02/2025 12:47 PM 02/06/2025 12:32 PM * Full Code Date Activated Date Inactivated Comments 01/31/2025 4:31 PM 02/02/2025 12:47 PM
--- OUTSIDE RECORDS SUMMARY | 2025-06-23 00:15 | XMS_ITS | Clinical Summary ---
Author Organization [facility] Address [address] [place] [address] Phone Care Team Providers Care Demolition Hammer Operator Name Role Phone Unavailable Primary Care Provider Unavailabl e Allergies No known active allergies Active Problems Problem Noted Date Diagnosed Date growth restriction antepartum 12/18/2024 Encounters Date Type Department Care Team Description 06/19/2025 12:58 PM CDT - 06/19/2025 3:29 PM CDT Emergency 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
--- NOTE | 2025-06-23 00:48 | ED.GENADULT ---
HPI - General Adult General Chief complaint: Unspecified Stated complaint: second rabies shot Time Seen by Provider: 06/22/25 23:42 Source: patient Mode of arrival: ambulatory Limitations: no limitations History of Present Illness HPI narrative: Patient is a 30-year-old female who presents the ED needing rabies vaccine. Patient reports she had a bat scratch/exposure to her posterior neck on night, 06/18. She was seen at [facility] on 06/19 and received immunoglobulin and 1st vaccination. She presents tonight for day 3 vaccination. Denies any other issues. Tetanus up-to-date. Related Data Home Medications ?Medication ?Instructions ?Recorded ?Confirmed ?Last Taken ?Type aspirin 81 mg capsule 81 mg PO DAILY pre-e prophylaxis 01/08/25 01/31/25 01/30/25 22:00 History ergocalciferol (vitamin D2) 1,250 50,000 unit PO WEEKLY 01/31/25 01/31/25 01/28/25 History mcg (50,000 unit) capsule Allergies Allergy/AdvReac Type Severity Reaction Status Date / Time No Known Allergies Allergy Unknown Verified 06/22/25 22:58 Review of Systems Review of Systems: All systems reviewed & are unremarkable except as noted in HPI. All systems reviewed & are unremarkable except as noted in HPI and below PMFSH Past Medical History Medical History GERD (gastroesophageal reflux disease) Food impaction of esophagus Dysphagia Patient denies significant medical history Surgical History Surgical History History of tonsillectomy Family History Family History Father No problems noted. Mother Hypertension Social History Social History Smoking status: Never smoker Alcohol intake: current Drinks per week: 4 Substance use: never Substance use type: does not use Lack of Transportation: No Lack of Food: Never True Current Housing: I Have Housing Concerned About Future Housing: No Difficulty Paying Gas/Electric Bills: No Difficulty Paying for Meds: No Currently Unemployed: No Education: Associate Degree Difficulty w/ Childcare or Family Care: No Living arrangements: with family Occupation/Education: occupation Gender identity (if verbalized by the patient): Female Sexual Orientation (if Verbalized by the Patient): Straight or Heterosexual Spiritual care concerns: No Exam Narrative: GENERAL: Well appearing, well-nourished, non-toxic, in no acute distress. HEAD: Normocephalic, atraumatic. NECK: No obvious scratch payne. Small area of bruising from previous injection. No tenderness. RESPIRATORY: Airway patent, respirations nonlabored. CARDIOVASCULAR: Regular rate and rhythm MUSCULOSKELETAL: Moves all extremities. No gross deformities. SKIN: Warm, dry, normal color. NEURO: A&O X3. Speech clear. PSYCHIATRIC: Appropriate mood and affect. Normal interaction. Course Vital Signs Vital signs: Vital Signs Temperature 97.4 F L 06/22/25 22:59 Pulse Rate 78 06/22/25 22:59 Respiratory Rate 16 06/22/25 22:59 Blood Pressure 121/87 06/22/25 22:59 Pulse Oximetry 98 06/22/25 22:59 Oxygen Delivery Room Air 06/22/25 22:59 Temperature 98.2 F 06/23/25 01:25 Pulse Rate 80 06/23/25 01:25 Respiratory Rate 18 06/23/25 01:25 Blood Pressure 115/69 06/23/25 01:25 Pulse Oximetry 97 06/23/25 01:25 Oxygen Delivery Room Air 06/22/25 22:59 Medical Decision Making MDM Narrative Medical decision making narrative: Patient given day 3 rabies vaccination here kandy. Discussed case with Holly, infectious disease, will provide patient with prescription for subsequent vaccinations on days 7 and 14. Holly to follow-up with patient regarding these vaccinations. Patient in agreement with plan. Given return precautions. Discharged in stable condition. Medical Records Medical records reviewed: Yes I reviewed the external patient's medical records. Vital Signs Vital Signs: Vital Signs Temperature 97.4 F L 06/22/25 22:59 Pulse Rate 78 06/22/25 22:59 Respiratory Rate 16 06/22/25 22:59 Blood Pressure 121/87 06/22/25 22:59 Pulse Oximetry 98 06/22/25 22:59 Oxygen Delivery Room Air 06/22/25 22:59 Temperature 98.2 F 06/23/25 01:25 Pulse Rate 80 06/23/25 01:25 Respiratory Rate 18 06/23/25 01:25 Blood Pressure 115/69 06/23/25 01:25 Pulse Oximetry 97 06/23/25 01:25 Oxygen Delivery Room Air 06/22/25 22:59 Discharge Plan Discharge Clinical Impression: Rabies, need for prophylactic vaccination against Patient Disposition: Home Condition: Stable Instructions: Antibiotic Form, Rabies (ED) Additional Instructions: Follow-up with Infectious Disease for subsequent vaccines. Patient Language: Telugu Prescriptions: No Action labetalol 100 mg tablet 100 mg PO Q12H Qty: 60 0RF ergocalciferol (vitamin D2) 1,250 mcg (50,000 unit) capsule 50,000 unit PO WEEKLY Patient Comments: Takes every Sunday aspirin 81 mg capsule 81 mg PO DAILY Follow-up/Referrals: Flaquito Knox MD [Primary Care Provider] - Time of Disposition: 00:56
[2025-06-23] MEDS: RABIES VACCINE (RABAVERT) 2.5 UNITS VIAL IM (01:06)
[2025-06-23 01:25] VITALS: BP 115/69; PULSE 80; RESP 18; TEMP 36.8; O2SAT 97
== END 2025-06-23 01:15 | disposition home or self-care (01) ==
PROVIDERS: Emergency Provider Physician Assistant; PCP Family Medicine
DX: Z29.14 Encounter for prophylactic rabies immune globulin (principal); Z23 Encounter for immunization; K21.9 Gastro-esophageal reflux disease without esophagitis
CPT/HCPCS: 90471; 90675; 99282

== ENCOUNTER 2025-06-27 06:48 | Outpatient (RCR) | payer BC, SELFPAY | END 2025-09-25 23:59 | disposition home or self-care (01) | LOC: ANHVASCINF 06:48 | PROVIDERS: PCP Family Medicine; Visit Provider Physician Assistant | DX: Z20.3 Contact with and (suspected) exposure to rabies (principal); Z29.14 Encounter for prophylactic rabies immune globulin | CPT/HCPCS: 90471; 90675 ==